=== PATIENT | female | born 1960 | race Caucasian/White ===

== ENCOUNTER 2021-07-01 13:26 | Inpatient (IN) | payer OTHER ==
[2021-07-01] MEDS ORDERED: methylPREDNISolone SOD SUCCI 125 MG/2 ML VIAL IV STA (13:43)
[2021-07-01] MEDS ORDERED: IPRATROPIUM-ALBUTEROL 3 ML NEB INHALATION STA ×3 (13:43→16:41)
--- NOTE | 2021-07-01 13:54 | ED ---
General Adult HPI - General Chief complaint: Shortness of Breath Stated complaint: SHARONA Time Seen by Provider: 07/01/21 13:32 Source: patient, RN notes reviewed, old records reviewed Mode of arrival: EMS Limitations: physical limitation - History of Present Illness Initial comments: Patient is a 60-year-old female with past medical history remarkable for hypertension, chronic tobacco use and denies history of CHF or COPD who presents emergency Department complaining of a three-day history of worsening shortness of breath. She started noticing that today she was suddenly worse. She was vaccinated for COVID-19. Boyfriend did have a URI last week and she initially thought that is what was going on. However she quickly worsened today which is why she is brought to the emergency department for evaluation. EMS when they found her discovered that she was 80% on room air. She did improve on nonrebreather to upper 90%'s. She denies any chest pain but does endorse a nonproductive cough. Denies any worsening lower extremity swelling. Endorses exertional dyspnea. Denies orthopnea or PND. Denies any fevers, chills. Denies any abdominal pain, nausea, vomiting. She has no other acute complaints at this time. She is not on oxygen at home. Patient presents with shortness of breath. - Related Data Home Medications Medication Instructions Recorded Confirmed Atorvastatin [Lipitor] 40 mg PO HS 07/01/21 07/01/21 Lisinopril-Hctz 20-12.5 mg 1 tab PO DAILY 07/01/21 07/01/21 [Zestoretic 20-12.5] Metoprolol Tartrate [Lopressor] 100 mg PO BID 07/01/21 07/01/21 amLODIPine [Norvasc] 10 mg PO DAILY 07/01/21 07/01/21 Allergies Allergy/AdvReac Type Severity Reaction Status Date / Time erythromycin base Allergy Unknown Verified 07/01/21 15:00 Review of Systems ROS Statement: Those systems with pertinent positive or pertinent negative responses have been documented in the HPI. Review of Systems: CONST: Denies fever EYES: Denies blurry vision ENT: Denies nasal congestion C/V: Denies Chest pain RESP: Endorses shortness of breath. GI: Denies abdominal pain : Denies dysuria SKIN: Denies rash. MSK: Denies joint pain. NEURO: Denies headache ROS Other: All systems not noted in ROS Statement are negative. Past Medical History Past Medical History: Hyperlipidemia, Hypertension History of Any Multi-Drug Resistant Organisms: None Reported Past Surgical History: Adenoidectomy, Tonsillectomy Past Psychological History: No Psychological Hx Reported Smoking Status: Current every day smoker Past Alcohol Use History: Occasional Past Drug Use History: None Reported General Exam - General Exam Comments Initial Comments: General: Appears in respiratory distress. She is tachypeic. There are mild subcostal retractions. HEAD: Normal with no signs of head trauma. EYES: PERRLA, EOMI, conjunctiva normal, no discharge. ENT: Hearing grossly intact, normal oropharynx. RESPIRATORY: Patient has bilateral rales and wheezes. She does have decent air movement bilaterally. Patient is saturating well on nonrebreather at this time, but will be transitioned to BiPAP. C/V: Regular rate and rhythm. S1 and S2 auscultated. Peripheral pulses are 2+ intact throughout. Patient does have mild pitting edema in the bilateral lower extremities, approximately 1-2+ into the calfs. ABD: Abd is soft, nontender, nondistended EXT: Normal range of motion, no obvious deformity SKIN: No rashes or lesions observed on exposed skin. NEURO: Alert and oriented 4. No focal deficits. Limitations: physical limitation Course Vital Signs 07/01/21 07/01/21 07/01/21 13:29 13:35 15:39 Temperature 97.3 F L Pulse Rate 77 60 Respiratory 32 H 38 H Rate Blood Pressure 195/106 O2 Sat by Pulse 99 Oximetry 07/01/21 07/01/21 07/01/21 15:52 17:30 18:36 Temperature Pulse Rate 68 68 72 Respiratory 18 18 Rate Blood Pressure 134/86 133/76 O2 Sat by Pulse 96 98 Oximetry 07/01/21 19:55 Temperature Pulse Rate 75 Respiratory 21 Rate Blood Pressure 144/94 O2 Sat by Pulse 96 Oximetry Medical Decision Making - Medical Decision Making Based on the patient's presentation and physical exam, I'm concerned for infectious versus cardiac versus pulmonary cause for current symptoms. Patient was vaccinated for COVID-19 that I cannot rule this out as a cause either. Therefore broad workup will be obtained. Patient will be started on BiPAP. Due to her wheezing and chronic tobacco use, we will administer IV Solu-Medrol, b reathing treatments, and IV magnesium. Chest x-ray and EKG will be obtained. Patient was in agreement with this plan. Patient does seem improved now that she has oxygen therapy. Initial EKG had a good amount of baseline artifact of both repeat an initial EKG showed no signs of acute ischemia that was obvious. Chest x-ray shows no acute cardio pulmonary process. Initially, there was a delay in obtaining laboratory studies from the lab. Multiple phone calls were made to the lab. They did c all back with the initial CMP and stated that they do not believe it is accurate and requested repeat. I did send repeat BMP and CBC. Everything did return at once following this repeat. They're remarkable for a leukocytosis of 12.8. Patient is acutely hyponatremic to 104 and hypochloremic 63. Patient states she has had a history of this previously but not to this degree. She is hypokalemic at 3.2. D-dimer is within normal limits. Troponin is negative. BNP is mildly elevated to 1800. COVID-19 swab is negative. On reevaluation, patient is improved on BiPAP. She is more comfortable. I do believe that this is a mixed primarily COPD with possible heart failure exacerbation picture as the cause of her difficulty in breathing. She states her breathing is improved. She is fully alert and oriented at this time. I discussed with her the results of her labs and imaging. She requires ICU admission for her hyponatremia and will be started on 30 mL an hour of 3% hypertonic saline. She was in agreement with this plan. Potassium was replenished. Patient will be started on Lasix twice a day. Patient will also receive steroids and breathing treatments on a regular basis. I spoke with the ICU attending and electrical drafter Dr. gomes who was in agreement this plan. Also contacted the patient's admitting physician, , who accepted the patient. Patient was admitted in serious condition to the ICU. - Lab Data Result diagrams: 07/01/21 16:43 07/01/21 16:43 Lab Results 07/01/21 07/01/21 07/01/21 Range/Units 14:00 15:15 15:15 WBC 12.2 H (3.8-10.6) k/uL RBC 4.64 (3.80-5.40) m/uL Hgb 15.1 (11.4-16.0) gm/dL Hct 41.1 (34.0-46.0) % MCV 88.8 (80.0-100.0) fL MCH 32.7 (25.0-35.0) pg MCHC 36.8 (31.0-37.0) g/dL RDW 12.0 (11.5-15.5) % Plt Count 345 (150-450) k/uL MPV 8.0 Neutrophils % 90 % Lymphocytes % 4 % Monocytes % 5 % Eosinophils % 0 % Basophils % 0 % Neutrophils # 11.0 H (1.3-7.7) k/uL Lymphocytes # 0.5 L (1.0-4.8) k/uL Monocytes # 0.6 (0-1.0) k/uL Eosinophils # 0.0 (0-0.7) k/uL Basophils # 0.0 (0-0.2) k/uL Manual Slide Review Performed RBC Morphology Normal Hyperchromasia Marked PT 10.1 (9.0-12.0) sec INR 0.9 (<1.2) APTT 29.4 (22.0-30.0) sec D-Dimer 0.55 (<0.60) mg/L FEU Sodium (137-145) mmol/L Potassium (3.5-5.1) mmol/L Chloride (98-107) mmol/L Carbon Dioxide (22-30) mmol/L Anion Gap mmol/L BUN (7-17) mg/dL Creatinine (0.52-1.04) mg/dL Est GFR (CKD-EPI)AfAm (>60 ml/min/1.73 sqM) Est GFR (CKD-EPI)NonAf (>60 ml/min/1.73 sqM) Glucose (74-99) mg/dL Plasma Lactic Acid Julien (0.7-2.0) mmol/L Calcium (8.4-10.2) mg/dL Magnesium (1.6-2.3) mg/dL Total Bilirubin (0.2-1.3) mg/dL AST (14-36) U/L ALT (4-34) U/L Alkaline Phosphatase (38-126) U/L Troponin I (0.000-0.034) ng/mL NT-Pro-B Natriuret Pep pg/mL Total Protein (6.3-8.2) g/dL Albumin (3.5-5.0) g/dL Coronavirus (PCR) Not Detected (Not Detectd) 07/01/21 07/01/21 07/01/21 Range/Units 15:15 15:15 15:15 WBC (3.8-10.6) k/uL RBC (3.80-5.40) m/uL Hgb (11.4-16.0) gm/dL Hct (34.0-46.0) % MCV (80.0-100.0) fL MCH (25.0-35.0) pg MCHC (31.0-37.0) g/dL RDW (11.5-15.5) % Plt Count (150-450) k/uL MPV Neutrophils % % Lymphocytes % % Monocytes % % Eosinophils % % Basophils % % Neutrophils # (1.3-7.7) k/uL Lymphocytes # (1.0-4.8) k/uL Monocytes # (0-1.0) k/uL Eosinophils # (0-0.7) k/uL Basophils # (0-0.2) k/uL Manual Slide Review RBC Morphology Hyperchromasia PT (9.0-12.0) sec INR (<1.2) APTT (22.0-30.0) sec D-Dimer (<0.60) mg/L FEU Sodium 103 L* (137-145) mmol/L Potassium 3.3 L (3.5-5.1) mmol/L Chloride 61 L* (98-107) mmol/L Carbon Dioxide 28 (22-30) mmol/L Anion Gap 14 mmol/L BUN 11 (7-17) mg/dL Creatinine 0.28 L (0.52-1.04) mg/dL Est GFR (CKD-EPI)AfAm >90 (>60 ml/min/1.73 sqM) Est GFR (CKD-EPI)NonAf >90 (>60 ml/min/1.73 sqM) Glucose 171 H (74-99) mg/dL Plasma Lactic Acid Julien 0.8 (0.7-2.0) mmol/L Calcium 9.3 (8.4-10.2) mg/dL Magnesium 3.5 H (1.6-2.3) mg/dL Total Bilirubin 0.8 (0.2-1.3) mg/dL AST 59 H (14-36) U/L ALT 40 H (4-34) U/L Alkaline Phosphatase 103 (38-126) U/L Troponin I <0.012 (0.000-0.034) ng/mL NT-Pro-B Natriuret Pep pg/mL Total Protein 8.2 (6.3-8.2) g/dL Albumin 4.8 (3.5-5.0) g/dL Coronavirus (PCR) (Not Detectd) 07/01/21 07/01/21 07/01/21 Range/Units 15:15 16:43 16:43 WBC 12.8 H (3.8-10.6) k/uL RBC 4.56 (3.80-5.40) m/uL Hgb 14.7 (11.4-16.0) gm/dL Hct 40.1 (34.0-46.0) % MCV 87.9 (80.0-100.0) fL MCH 32.3 (25.0-35.0) pg MCHC 36.7 (31.0-37.0) g/dL RDW 12.0 (11.5-15.5) % Plt Count 342 (150-450) k/uL MPV 7.5 Neutrophils % 91 % Lymphocytes % 5 % Monocytes % 4 % Eosinophils % 0 % Basophils % 0 % Neutrophils # 11.6 H (1.3-7.7) k/uL Lymphocytes # 0.6 L (1.0-4.8) k/uL Monocytes # 0.5 (0-1.0) k/uL Eosinophils # 0.0 (0-0.7) k/uL Basophils # 0.0 (0-0.2) k/uL Manual Slide Review Performed RBC Morphology Hyperchromasia Marked PT (9.0-12.0) sec INR (<1.2) APTT (22.0-30.0) sec D-Dimer (<0.60) mg/L FEU Sodium 104 L* (137-145) mmol/L Potassium 3.2 L (3.5-5.1) mmol/L Chloride 63 L* (98-107) mmol/L Carbon Dioxide 29 (22-30) mmol/L Anion Gap 12 mmol/L BUN 12 (7-17) mg/dL Creatinine 0.36 L (0.52-1.04) mg/dL Est GFR (CKD-EPI)AfAm >90 (>60 ml/min/1.73 sqM) Est GFR (CKD-EPI)NonAf >90 (>60 ml/min/1.73 sqM) Glucose 137 H (74-99) mg/dL Plasma Lactic Acid Julien (0.7-2.0) mmol/L Calcium 9.3 (8.4-10.2) mg/dL Magnesium (1.6-2.3) mg/dL Total Bilirubin (0.2-1.3) mg/dL AST (14-36) U/L ALT (4-34) U/L Alkaline Phosphatase (38-126) U/L Troponin I (0.000-0.034) ng/mL NT-Pro-B Natriuret Pep 1890 pg/mL Total Protein (6.3-8.2) g/dL Albumin (3.5-5.0) g/dL Coronavirus (PCR) (Not Detectd) - EKG Data -: EKG Interpreted by Me EKG Comments: 12-lead Electrocardiogram Interpretation Note EKG was reviewed and interpreted by myself. 12-lead ECG performed at 1347 is interpreted by me as revealing normal sinus rhythm with a good deal of baseline artifact at a rate of 81 beats per minute. Pinson is normal. HI interval is mildly prolonged at 204 ms, QRS ration is 102 ms, QTc is 473 ms.. There were no obvious ST or T wave abnormalities to suggest myocardial ischemia or injury. R wave progression across the precordium was satisfactory. By my interpretation this EKG is non-diagnostic for acute ischemia. However, this EKG is difficult to interpret secondary to a good deal of baseline artifact. Repeat EKG will be obtained. Repeat EKG was obtained. 12-lead Electrocardiogram Interpretation Note EKG was reviewed and interpreted by myself. 12-lead ECG performed at 1558 is interpreted by me as revealing normal sinus rhythm at a rate of 68 beats per minute. Pinson is normal. HI intervals 182 ms, QRS duration is 88 ms, QTc is 497 ms.. There were no ST or T wave abnormalities to suggest myocardial ischemia or injury. R wave progression across the precordium was satisfactory. By my interpretation this EKG is non-diagnostic for acute ischemia. There is still a decent amount of baseline artifact but no signs of acute ischemia but is obvious. Critical Care Time Critical Care Time: Yes Total Critical Care Time: 30 Critical Care Time: Upon my evaluation, this patient had a high probability of imminent or life- threatening deterioration due to hypoxic respiratory failure, COPD exacerbation, hyponatremia, heart failure exacerbation, which required my direct attention, intervention, and personal management. I have personally provided 30 minutes of critical care time exclusive of time spent on separately billable procedures. Time includes review of laboratory data, radiology results, discussion with consultants, and monitoring for potential decompensation. Interventions were performed as documented in my note. Disposition Clinical Impression: Hyponatremia, COPD exacerbation, Respiratory failure with hypoxia, CHF exacerbation Disposition: ADMITTED IP TO THIS HOSP Condition: Serious
[2021-07-01] MEDS: MAGNESIUM SULFATE-D5W PMX 1 GM in DEXTROSE/WATER 1 100ML.BAG IVPB SCH ×2 (13:56→15:00)
--- NOTE | 2021-07-01 14:39 | XR ---
EXAMINATION TYPE: XR chest 1V DATE OF EXAM: 07/01/2021 COMPARISON: NONE HISTORY: Short of breath TECHNIQUE: Single view FINDINGS: There is no heart failure nor confluent pneumonic infiltrate. Costophrenic angles are clear . There are no hilar masses. IMPRESSION: No active cardiopulmonary disease.
[2021-07-01 15:50] LABS: ALT 40 U/L (4-34); AST 59 U/L (14-36); African American GFR (CKD) >90 (>60 ml/min/1.73 sqM); Albumin 4.8 g/dL (3.5-5.0); Alkaline Phosphatase 103 U/L (38-126); Anion Gap 14 mmol/L; Blood Urea Nitrogen 11 mg/dL (7-17); Calcium 9.3 mg/dL (8.4-10.2); Carbon Dioxide 28 mmol/L (22-30); Glucose 171 mg/dL (74-99); Magnesium 3.5 mg/dL (1.6-2.3); Non-African American GFR(CKD) >90 (>60 ml/min/1.73 sqM); Potassium 3.3 mmol/L (3.5-5.1); Total Bilirubin 0.8 mg/dL (0.2-1.3); Total Protein 8.2 g/dL (6.3-8.2)
[2021-07-01 16:20] LABS: Chloride 61 mmol/L (98-107); Sodium 103 mmol/L (137-145)
[2021-07-01 16:29] LABS: INR 0.9 (<1.2); Partial Thromboplastin Time 29.4 sec (22.0-30.0); Prothrombin Time 10.1 sec (9.0-12.0)
[2021-07-01 16:38] LABS: Basophils % (A) 0 %; Eosinophils % (A) 0 %; HCT 41.1 % (34.0-46.0); HGB 15.1 gm/dL (11.4-16.0); Hyperchromasia Marked; Lymphocytes # (A) 0.5 k/uL (1.0-4.8); Lymphocytes % (A) 4 %; MCH 32.7 pg (25.0-35.0); MCHC 36.8 g/dL (31.0-37.0); MCV 88.8 fL (80.0-100.0); Monocytes # (A) 0.6 k/uL (0-1.0); Monocytes % (A) 5 %; Neutrophils % (A) 90 %; Platelet Count 345 k/uL (150-450); RBC 4.64 m/uL (3.80-5.40); WBC 12.2 k/uL (3.8-10.6)
[2021-07-01 17:10] LABS: African American GFR (CKD) >90 (>60 ml/min/1.73 sqM); Blood Urea Nitrogen 12 mg/dL (7-17); Calcium 9.3 mg/dL (8.4-10.2); Carbon Dioxide 29 mmol/L (22-30); Glucose 137 mg/dL (74-99); Non-African American GFR(CKD) >90 (>60 ml/min/1.73 sqM)
[2021-07-01 17:28] LABS: Anion Gap 12 mmol/L; Potassium 3.2 mmol/L (3.5-5.1)
[2021-07-01 17:31] LABS: Basophils % (A) 0 %; Chloride 63 mmol/L (98-107); Eosinophils % (A) 0 %; HCT 40.1 % (34.0-46.0); HGB 14.7 gm/dL (11.4-16.0); Hyperchromasia Marked; Lymphocytes # (A) 0.6 k/uL (1.0-4.8); Lymphocytes % (A) 5 %; MCH 32.3 pg (25.0-35.0); MCHC 36.7 g/dL (31.0-37.0); MCV 87.9 fL (80.0-100.0); Mean Platelet Volume 7.5; Monocytes # (A) 0.5 k/uL (0-1.0); Monocytes % (A) 4 %; Neutrophils # (A) 11.6 k/uL (1.3-7.7); Neutrophils % (A) 91 %; Platelet Count 342 k/uL (150-450); RBC 4.56 m/uL (3.80-5.40); Sodium 104 mmol/L (137-145); WBC 12.8 k/uL (3.8-10.6)
[2021-07-01] MEDS ORDERED: POTASSIUM CHLORIDE ER 20 MEQ TAB.ER PO STA (17:34)
[2021-07-01] MEDS ORDERED: FUROSEMIDE 10 MG/ML 4 ML VIAL IV STA (17:50)
[2021-07-01] MEDS ORDERED: SODIUM CHLORIDE 3%(HYPERTONIC) 500 ML IV SCH (18:00)
[2021-07-01] MEDS ORDERED: NALOXONE 0.4 MG/ML 1 ML VIAL IV PRN (18:02)
[2021-07-01] MEDS ORDERED: IPRATROPIUM-ALBUTEROL 3 ML NEB INHALATION SCH (19:00)
[2021-07-01] MEDS ORDERED: IPRATROPIUM-ALBUTEROL 3 ML NEB INHALATION PRN (19:24)
[2021-07-01] MEDS: IPRATROPIUM-ALBUTEROL 3 ML NEB INHALATION SCH (20:53)
--- NOTE | 2021-07-01 21:28 | CT ---
EXAMINATION TYPE: CT chest wo con DATE OF EXAM: 07/01/2021 COMPARISON: None HISTORY: SOB CT DLP: 472.2 mGycm Automated exposure control for dose reduction was used. Images obtained from the thoracic inlet to the diaphragm without contrast. The lungs are clear of consolidation. There is minimal interstitial density in the mid and lower lung barros. There is no pleural effusion. There is no evidence of a pulmonary mass. Heart appears border line enlarged. There is no pericardial effusion. There is no mediastinal adenopathy. There are no hil ar masses. There is some mild coronary artery calcification. The thoracic spine is intact. There is no compression fracture. Sternum is intact. IMPRESSION: No pulmonary consolidation. No suspicious pulmonary mass. Slight increased pulmonary interstitial den sity.
[2021-07-01 21:47] LABS: Glucose,Whole Blood 150 mg/dL (75-99)
[2021-07-01 22:56] LABS: African American GFR (CKD) >90 (>60 ml/min/1.73 sqM); Anion Gap 14 mmol/L; Blood Urea Nitrogen 16 mg/dL (7-17); Calcium 9.6 mg/dL (8.4-10.2); Carbon Dioxide 26 mmol/L (22-30); Glucose 127 mg/dL (74-99); Non-African American GFR(CKD) >90 (>60 ml/min/1.73 sqM); Uric Acid 2.6 mg/dL (3.7-7.4)
[2021-07-01 23:08] LABS: Sodium 107 mmol/L (137-145)
[2021-07-01 23:09] LABS: Chloride 67 mmol/L (98-107); Potassium 5.7 mmol/L (3.5-5.1)
[2021-07-02] MEDS: methylPREDNISolone SOD SUCCI 40 MG/ML 1 ML VIAL IV SCH ×5 (00:18→23:08)
[2021-07-02] MEDS: METOPROLOL TARTRATE 50 MG TAB PO SCH ×3 (00:18→20:00)
[2021-07-02] MEDS: ATORVASTATIN 40 MG TAB PO SCH ×2 (00:18→20:00)
[2021-07-02 04:02] LABS: Amorphous Sediment,Urine Occasional /hpf; Appearance,Urine Clear (Clear); Bilirubin,Urine Negative (Negative); Blood,Urine Trace (Negative); Color,Urine Yellow; Glucose,Urine (UA) 1+ (Negative); Ketones,Urine Negative (Negative); Leukocyte Esterase,Urine Negative (Negative); Mucus,Urine Rare /hpf; Nitrite,Urine Negative (Negative); Protein,Urine 2+ (Negative); RBC,Urine 1 /hpf (0-5); Specific Gravity,Urine 1.017 (1.001-1.035); Squamous Epithelial Cell,Urine 1 /hpf (0-4); Urobilinogen,Urine <2.0 mg/dL (<2.0); WBC,Urine 4 /hpf (0-5)
[2021-07-02 04:05] LABS: ALT 38 U/L (4-34); AST 51 U/L (14-36); African American GFR (CKD) >90 (>60 ml/min/1.73 sqM); Albumin 4.4 g/dL (3.5-5.0); Alkaline Phosphatase 80 U/L (38-126); Anion Gap 15 mmol/L; Blood Urea Nitrogen 16 mg/dL (7-17); Calcium 8.6 mg/dL (8.4-10.2); Carbon Dioxide 24 mmol/L (22-30); Glucose 111 mg/dL (74-99); Non-African American GFR(CKD) >90 (>60 ml/min/1.73 sqM); Total Bilirubin 0.8 mg/dL (0.2-1.3); Total Protein 7.5 g/dL (6.3-8.2)
[2021-07-02 04:06] LABS: Basophils % (A) 0 %; Eosinophils % (A) 0 %; HGB 14.3 gm/dL (11.4-16.0); Lymphocytes % (A) 5 %; MCH 32.9 pg (25.0-35.0); MCHC 36.6 g/dL (31.0-37.0); Mean Platelet Volume 7.3; Monocytes # (A) 2.2 k/uL (0-1.0); Monocytes % (A) 12 %; Neutrophils # (A) 14.7 k/uL (1.3-7.7); Neutrophils % (A) 81 %; Platelet Count 333 k/uL (150-450); RBC 4.33 m/uL (3.80-5.40); RDW 11.3 % (11.5-15.5); WBC 18.1 k/uL (3.8-10.6)
[2021-07-02 04:21] LABS: Chloride 67 mmol/L (98-107); Potassium 3.4 mmol/L (3.5-5.1); Sodium 106 mmol/L (137-145)
[2021-07-02 04:22] LABS: Creatinine,Urine Random 81.8 mg/dL
[2021-07-02] MEDS ORDERED: POTASSIUM CHLORIDE ER 20 MEQ TAB.ER PO STA (04:24)
[2021-07-02 04:52] LABS: Glucose,Whole Blood 130 mg/dL (75-99)
[2021-07-02] MEDS: INSULIN ASPART (NovoLOG) 100 UNIT/ML VIAL SQ SCH ×4 (05:04→23:08)
[2021-07-02 07:38] LABS: Potassium 3.6 mmol/L (3.5-5.1)
[2021-07-02] MEDS: IPRATROPIUM-ALBUTEROL 3 ML NEB INHALATION SCH ×4 (07:38→20:19)
[2021-07-02 07:53] LABS: Sodium 110 mmol/L (137-145)
[2021-07-02] MEDS ORDERED: Potassium Replacement Protocol 1 EACH MISC MISCELLANE PRN (08:16)
[2021-07-02] MEDS: PANTOPRAZOLE 40 MG/10 ML VIAL IV SCH (08:25)
--- NOTE | 2021-07-02 08:52 | P.NPCON ---
History of Present Illness - Reason for Consult hyponatremia - History of Present Illness Reason for consultation: Hyponatremia History of present illness: Patient is a 60-year-old female seen in renal consultation for hyponatremia. Sodium level on admission on July 01 at 3:15 PM was 103. Patient is currently receiving 3% saline and sodium level from this morning is up to 110. She was initially on BiPAP and is currently on 3 L nasal cannula. She's currently not responding to verbal commands. She is sleeping. Patient was taking hydrochlorothiazide as an outpatient. Urine osmolality 471. From the records it appears that she had an upper respiratory infection last week but the symptoms worsen and she came to the hospital. When she was found by the EMS her oxygen saturation was 80%. Currently on 3 L is a cannula her oxygen saturation is 96-99%. Chest CT revealed no pulmonary consolidation. No evidence of fluid overload. Hemodynamically stable. No fever. Vital signs are stable. General: Sleeping. On nasal cannula. HEENT: Head exam is unremarkable. LUNGS: Breath sounds decreased. HEART: Rate and Rhythm are regular. ABDOMEN: Soft, obese. EXTREMITITES: No edema. Past Medical History Past Medical History: Hyperlipidemia, Hypertension History of Any Multi-Drug Resistant Organisms: None Reported Past Surgical History: Adenoidectomy, Tonsillectomy Past Anesthesia/Blood Transfusion Reactions: No Reported Reaction Past Psychological History: No Psychological Hx Reported Smoking Status: Current every day smoker Past Alcohol Use History: Occasional Past Drug Use History: None Reported - Past Family History Father History Unknown: Yes Mother History Unknown: Yes Medications and Allergies Home Medications Medication Instructions Recorded Confirmed Type Atorvastatin [Lipitor] 40 mg PO HS 07/01/21 07/01/21 History Lisinopril-Hctz 20-12.5 mg 1 tab PO DAILY 07/01/21 07/01/21 History [Zestoretic 20-12.5] Metoprolol Tartrate [Lopressor] 100 mg PO BID 07/01/21 07/01/21 History amLODIPine [Norvasc] 10 mg PO DAILY 07/01/21 07/01/21 History Allergies Allergy/AdvReac Type Severity Reaction Status Date / Time erythromycin base Allergy Unknown Verified 07/01/21 15:00 Physical Exam Vitals: Vital Signs Temp Pulse Pulse Resp BP BP Pulse Ox 07/02/21 07:48 82 22 07/02/21 07:38 82 22 96 07/02/21 07:00 70 20 146/87 99 07/02/21 06:00 64 20 165/86 97 07/02/21 05:00 65 22 153/95 96 07/02/21 04:03 94 L 07/02/21 04:00 98.3 F 66 25 H 142/79 92 L 07/02/21 03:00 64 16 94 L 07/02/21 02:00 62 16 150/79 96 07/02/21 01:00 62 14 148/80 98 07/02/21 00:12 96 07/02/21 00:00 98.6 F 65 22 133/99 98 07/01/21 23:30 76 20 107/93 93 L 07/01/21 23:00 80 16 167/95 90 L 07/01/21 22:30 71 15 153/102 98 07/01/21 22:09 97 07/01/21 22:00 97.3 F L 68 16 162/97 99 07/01/21 21:02 98 F 71 20 125/75 07/01/21 20:49 71 20 95 07/01/21 19:55 75 21 144/94 96 07/01/21 19:22 162/97 97 07/01/21 18:36 72 18 133/76 98 07/01/21 17:30 68 18 134/86 96 07/01/21 15:52 68 07/01/21 15:39 60 07/01/21 13:35 38 H 07/01/21 13:29 97.3 F L 77 32 H 195/106 99 Intake and Output 07/01/21 07/02/21 07/02/21 22:59 06:59 14:59 Intake Total 30 260 40 Output Total 0 250 0 Balance 30 10 40 Intake: IV 30 260 40 3% 30 260 40 Output: Urine 0 250 0 Other: Voiding Method Bedpan Weight 117.934 kg 114.1 kg Results - Lab Results Most recent lab results Calcium 8.6 mg/dL (8.4-10.2) 07/02/21 02:57 Magnesium 2.0 mg/dL (1.6-2.3) 07/02/21 02:57 07/02/21 02:57 07/02/21 07:20 Assessment and Plan Plan: Assessment: 1. Hyponatremia. Appears euvolemic. Component of poor intake and use of thiazide diuretic. Also concern for SIADH. Urine osmolality 471. TSH normal. Sodium level was 103 on admission and is up to 110 this morning. 2. COPD exacerbation. 3. Benign hypertension. 4. Hypokalemia from poor intake and diuretics. Being replaced. Plan: Stop 3%. Stop all diuretics. Recheck sodium level at 10:30 AM. Goal rate of sodium correction 6-8 mEq per 24 hours. Avoid thiazide diuretics in the future. Thank you for the consultation. I will continue to follow the patient with you during her hospital stay.
[2021-07-02] MEDS ORDERED: FUROSEMIDE 10 MG/ML 4 ML VIAL IV SCH (09:00)
[2021-07-02] MEDS ORDERED: POTASSIUM CHLORIDE ER 20 MEQ TAB.ER PO SCH (09:00)
[2021-07-02] MEDS ORDERED: amLODIPine 10 MG TAB PO SCH (09:00)
[2021-07-02] MEDS ORDERED: LISINOPRIL-HCTZ 20-12.5 MG 1 EACH TAB PO SCH (09:00)
--- NOTE | 2021-07-02 09:19 | XR ---
EXAMINATION TYPE: XR chest 1V DATE OF EXAM: 07/02/2021 COMPARISON: Chest x-ray 07/01/2021 HISTORY: COPD, congestive heart failure TECHNIQUE: Single frontal view of the chest is obtained. FINDINGS: Patient is rotated, there are overlying leads, exam is expiratory. There is no focal air sp nikhil opacity, pleural effusion, or pneumothorax seen. The cardiac silhouette size is prominent althou gh this may be due to technique. The osseous structures are intact. IMPRESSION: Expiratory rotated exam. Cardiomegaly.
--- NOTE | 2021-07-02 10:44 | P.CNPUL ---
History of Present Illness Consult date: 07/02/21 Requesting physician: Hayden Gutierrez Reason for consult: dyspnea Chief complaint: Shortness of breath History of present illness: 60-year-old white female patient with past medical history of hypertension, nicotine dependence, hyperlipidemia, morbid obesity who presented to the emergency department on 07/01/2021 complaining of a 3 day history of worsening shortness of breath. Patient noticed that shortness of breath became suddenly worse, she was not vaccinated for COVID-19, and her boyfriend had a upper respiratory infection last week. The EMS found her pulse ox to be around 80% on room air, she was placed on nonrebreather mask and her pulse ox improved up to 90%. She denied any chest pain, her cough is nonproductive, no fever, no chills, no nausea vomiting or diarrhea, she is usually not oxygen dependent at baseline. Her chest x-ray shows no active cardiopulmonary disease, EKG showed sinus rhythm. Her labs revealed a sodium of 103, potassium of 3.3, chloride was 61, white count was 12.2, hemoglobin is 15.1, lactic acid was 0.8, proBNP was 1890, troponin was less than 0.012, COVID-19 PCR was negative. D-dimer was negative at 0.55, and INR was 0.9. CT chest without contrast showed no pulmonary consolidation, no suspicious pulmonary mass, and slight increased pulmonary interstitial density. She was given a dose of Lasix in the emergency department. She was started on nebulized treatments and IV steroids, acute exacerbation of COPD, and nephrology consultation was requested. Review of Systems All systems: negative Constitutional: Denies chills, Denies fever Eyes: denies blurred vision, denies pain Ears, nose, mouth and throat: Denies headache, Denies sore throat Cardiovascular: Denies chest pain, Denies shortness of breath Respiratory: Reports dyspnea, Denies cough Gastrointestinal: Denies abdominal pain, Denies diarrhea, Denies nausea, Denies vomiting Genitourinary: Denies dysuria, Denies hematuria Musculoskeletal: Denies myalgias Integumentary: Denies pruritus, Denies rash Neurological: Denies numbness, Denies weakness Psychiatric: Denies anxiety, Denies depression Endocrine: Denies fatigue, Denies weight change Past Medical History Past Medical History: Hyperlipidemia, Hypertension History of Any Multi-Drug Resistant Organisms: None Reported Past Surgical History: Adenoidectomy, Tonsillectomy Past Anesthesia/Blood Transfusion Reactions: No Reported Reaction Past Psychological History: No Psychological Hx Reported Smoking Status: Current every day smoker Past Alcohol Use History: Occasional Past Drug Use History: None Reported - Past Family History Father History Unknown: Yes Mother History Unknown: Yes Medications and Allergies Home Medications Medication Instructions Recorded Confirmed Type Atorvastatin [Lipitor] 40 mg PO HS 07/01/21 07/01/21 History Lisinopril-Hctz 20-12.5 mg 1 tab PO DAILY 07/01/21 07/01/21 History [Zestoretic 20-12.5] Metoprolol Tartrate [Lopressor] 100 mg PO BID 07/01/21 07/01/21 History amLODIPine [Norvasc] 10 mg PO DAILY 07/01/21 07/01/21 History Allergies Allergy/AdvReac Type Severity Reaction Status Date / Time erythromycin base Allergy Unknown Verified 07/01/21 15:00 Physical Exam Vitals: Vital Signs Temp Pulse Pulse Resp BP BP Pulse Ox 07/02/21 09:00 67 16 159/107 96 07/02/21 08:00 98.6 F 66 13 156/105 93 L 07/02/21 07:48 82 22 07/02/21 07:38 82 22 96 07/02/21 07:00 70 20 146/87 99 07/02/21 06:00 64 20 165/86 97 07/02/21 05:00 65 22 153/95 96 07/02/21 04:03 94 L 07/02/21 04:00 98.3 F 66 25 H 142/79 92 L 07/02/21 03:00 64 16 94 L 07/02/21 02:00 62 16 150/79 96 07/02/21 01:00 62 14 148/80 98 07/02/21 00:12 96 07/02/21 00:00 98.6 F 65 22 133/99 98 07/01/21 23:30 76 20 107/93 93 L 07/01/21 23:00 80 16 167/95 90 L 07/01/21 22:30 71 15 153/102 98 07/01/21 22:09 97 07/01/21 22:00 97.3 F L 68 16 162/97 99 07/01/21 21:02 98 F 71 20 125/75 07/01/21 20:49 71 20 95 07/01/21 19:55 75 21 144/94 96 07/01/21 19:22 162/97 97 07/01/21 18:36 72 18 133/76 98 07/01/21 17:30 68 18 134/86 96 07/01/21 15:52 68 07/01/21 15:39 60 07/01/21 13:35 38 H 07/01/21 13:29 97.3 F L 77 32 H 195/106 99 Intake and Output 07/01/21 07/02/21 07/02/21 22:59 06:59 14:59 Intake Total 30 260 175 Output Total 0 250 0 Balance 30 10 175 Intake: IV 30 260 175 3% 30 260 175 Output: Urine 0 250 0 Other: Voiding Method Bedpan Bedpan # Voids 0 Weight 117.934 kg 114.1 kg 114.1 kg GENERAL EXAM: Alert, pleasant, 60-year-old white female, 3 L of oxygen a pulse ox of 93-96% comfortable in no apparent distress. HEAD: Normocephalic/atraumatic. EYES: Normal reaction of pupils, equal size. Conjunctiva pink, sclera white. NOSE: Clear with pink turbinates. THROAT: No erythema or exudates. NECK: No masses, no JVD, no thyroid enlargement, no adenopathy. CHEST: No chest wall deformity. Symmetrical expansion. LUNGS: Equal air entry with diminished breath sounds, mild wheezing CVS: Regular rate and rhythm, normal S1 and S2, no gallops, no murmurs, no rubs ABDOMEN: Soft, nontender. No hepatosplenomegaly, normal bowel sounds, no guarding or rigidity. EXTREMITIES: No clubbing, no edema, no cyanosis, 2+ pulses and upper and lower extremities. MUSCULOSKELETAL: Muscle strength and tone normal. SPINE: No scoliosis or deformity SKIN: No rashes CENTRAL NERVOUS SYSTEM: Alert and oriented -3. No focal deficits, tone is normal in all 4 extremities. PSYCHIATRIC: Alert and oriented -3. Appropriate affect. Intact judgment and insight. Results - Laboratory Findings CBC and BMP: 07/02/21 02:57 07/02/21 07:20 PT/INR, D-dimer PT 10.1 sec (9.0-12.0) 07/01/21 15:15 INR 0.9 (<1.2) 07/01/21 15:15 D-Dimer 0.55 mg/L FEU (<0.60) 07/01/21 15:15 Abnormal lab findings: Abnormal Labs 07/01/21 07/01/21 07/01/21 01:35 15:15 15:15 WBC 12.2 H RDW Neutrophils # 11.0 H Lymphocytes # 0.5 L Monocytes # Sodium 103 L* Potassium 3.3 L Chloride 61 L* Creatinine 0.28 L Glucose 171 H POC Glucose (mg/dL) Uric Acid Magnesium 3.5 H AST 59 H ALT 40 H Urine Protein 2+ H Urine Glucose (UA) 1+ H Urine Blood Trace H Amorphous Sediment Occasional H Hyaline Casts 69 H Urine Mucus Rare H 07/01/21 07/01/21 07/01/21 16:43 16:43 21:46 WBC 12.8 H RDW Neutrophils # 11.6 H Lymphocytes # 0.6 L Monocytes # Sodium 104 L* Potassium 3.2 L Chloride 63 L* Creatinine 0.36 L Glucose 137 H POC Glucose (mg/dL) 150 H Uric Acid Magnesium AST ALT Urine Protein Urine Glucose (UA) Urine Blood Amorphous Sediment Hyaline Casts Urine Mucus 07/01/21 07/02/21 07/02/21 22:25 02:57 02:57 WBC 18.1 H RDW 11.3 L Neutrophils # 14.7 H Lymphocytes # Monocytes # 2.2 H Sodium 107 L* 106 L* Potassium 5.7 H 3.4 L Chloride 67 L* 67 L* Creatinine 0.41 L 0.28 L Glucose 127 H 111 H POC Glucose (mg/dL) Uric Acid 2.6 L Magnesium AST 51 H ALT 38 H Urine Protein Urine Glucose (UA) Urine Blood Amorphous Sediment Hyaline Casts Urine Mucus 07/02/21 07/02/21 04:49 07:20 WBC RDW Neutrophils # Lymphocytes # Monocytes # Sodium 110 L* Potassium Chloride Creatinine Glucose POC Glucose (mg/dL) 130 H Uric Acid Magnesium AST ALT Urine Protein Urine Glucose (UA) Urine Blood Amorphous Sediment Hyaline Casts Urine Mucus - Diagnostic Findings Chest x-ray: report reviewed, image reviewed CT scan - chest: report reviewed, image reviewed Additional studies: EKG reviewed Assessment and Plan Plan: Assessment: #1. Acute hypoxic respiratory failure related to acute exacerbation of COPD. COVID-19 PCR was negative, chest x-ray showed no acute pulmonary process #2. Severe hyponatremia, likely hypovolemic related to poor intake and thiazide diuretic therapy, possible SIADH. Nephrology is following. Patient was on 3% hypertonic saline, today sodium is 110 #3. Hypertension #4. Current and ongoing history of smoking #5. Suspect underlying COPD, severity of which is not known #6. Hypokalemia, related to dehydration and diuretic therapy, being replaced per protocol #7. Hypertension #8. Morbid obesity with BMI of 46 kg/m Plan: Continue IV steroids and bronchodilators Patient off BiPAP support, she is tolerating nasal cannula, an easier Afebrile, COVID-19 PCR was negative, chest x-ray showed no acute process Nephrology is following and managing the serum sodium GI and DVT prophylaxis Follow-up labs and electrolytes per nephrology recommendations We'll continue to closely follow I performed a history & physical examination of the patient and discussed their management with my nurse practitioner, Monique Stewart. I reviewed the nurse practitioner's note and agree with the documented findings and plan of care. Lung sounds are positive for diffuse wheezes throughout the lung barros. The findings and the impression was discussed with the patient. I attest to the documentation by the nurse practitioner. Time with Patient: Greater than 30
[2021-07-02 11:19] LABS: Hyaline Casts,Urine 37 /lpf (0-2)
[2021-07-02 11:45] LABS: Potassium 3.8 mmol/L (3.5-5.1)
[2021-07-02 11:55] LABS: Glucose,Whole Blood 117 mg/dL (75-99)
[2021-07-02] MEDS ORDERED: HALOPERIDOL LACTATE 5 MG/ML 1 ML VIAL ONE (12:30)
[2021-07-02] MEDS: HALOPERIDOL LACTATE 5 MG/ML 1 ML VIAL IVP PRN ×2 (12:33→12:54)
--- NOTE | 2021-07-02 17:13 | P.CRDCN ---
History of Present Illness History of present illness: This is Dr. Campbell dictating a consult on this patient The patient was interviewed and examined IMPRESSION / ASSESSMENT: Shortness of breath and mental status changes Reason viral infection Severe hyponatremia PLAN: 2-D echo and Doppler study to assess cardiac function Continue metoprolol twice daily Amlodipine 10 mg at noontime Monitor blood pressure HPI patient presented to the hospital after she became increasingly short of breath and lethargic Last fecal had an upper respiratory infection and then subsequently she got an upper respiratory infection then became more short of breath and progressively lethargic She was found to have a very low sodium and is being treated for severe hyponatremia this time and nephrology is on consultation Past medical history of hypertension and tobacco use and increased BMI She has been vaccinated against: ROS: No fever chills or rigors, no cough, phlegm or expectoration, no nausea, vomiting or diarrhea, no hematuria, dysuria, no musculoskeletal complaints, no strokes or seizures, no skin lesions. EXAMINATION: Blood pressure 127/66. Millimeters of mercury pulse rate in the 60s Reduced breath sounds bilaterally Heart sounds are normal REVIEW OF LABS, ECG & MEDICAL DATA chest x-ray does not show any pulmonary infiltrate Baseline artifact and twelve-lead EKG sinus rhythm normal LA narrow QRS normal ST segments CT of the chest no bony consolidation increased pulmonary interstitial density Severe hyponatremia noted, 107 110 Normal troponin Elevated white count 12.8 thousand D-dimer 0.55 NT proBNP 1890 Home medications include amlodipine, metoprolol, lisinopril hydrochlorothiazide and atorvastatin Past Medical History Past Medical History: Hyperlipidemia, Hypertension History of Any Multi-Drug Resistant Organisms: None Reported Past Surgical History: Adenoidectomy, Tonsillectomy Past Anesthesia/Blood Transfusion Reactions: No Reported Reaction Past Psychological History: No Psychological Hx Reported Smoking Status: Current every day smoker Past Alcohol Use History: Occasional Past Drug Use History: None Reported - Past Family History Father History Unknown: Yes Mother History Unknown: Yes Medications and Allergies Home Medications Medication Instructions Recorded Confirmed Type Atorvastatin [Lipitor] 40 mg PO HS 07/01/21 07/01/21 History Lisinopril-Hctz 20-12.5 mg 1 tab PO DAILY 07/01/21 07/01/21 History [Zestoretic 20-12.5] Metoprolol Tartrate [Lopressor] 100 mg PO BID 07/01/21 07/01/21 History amLODIPine [Norvasc] 10 mg PO DAILY 07/01/21 07/01/21 History Allergies Allergy/AdvReac Type Severity Reaction Status Date / Time erythromycin base Allergy Unknown Verified 07/01/21 15:00 Physical Exam Vitals: Vital Signs Temp Pulse Pulse Resp BP BP Pulse Ox 07/02/21 16:00 97.9 F 64 16 116/50 92 L 07/02/21 15:53 84 07/02/21 15:40 78 07/02/21 15:00 62 15 127/66 98 07/02/21 14:00 71 21 116/61 98 07/02/21 13:00 67 13 123/61 95 07/02/21 12:00 65 18 87/62 97 07/02/21 11:45 62 18 07/02/21 11:36 60 20 07/02/21 11:00 55 L 12 91/65 91 L 07/02/21 10:00 55 L 13 136/80 95 07/02/21 09:00 67 16 159/107 96 07/02/21 08:00 98.6 F 66 13 156/105 93 L 07/02/21 07:48 82 22 07/02/21 07:38 82 22 96 07/02/21 07:00 70 20 146/87 99 07/02/21 06:00 64 20 165/86 97 07/02/21 05:00 65 22 153/95 96 07/02/21 04:03 94 L 07/02/21 04:00 98.3 F 66 25 H 142/79 92 L 07/02/21 03:00 64 16 94 L 07/02/21 02:00 62 16 150/79 96 07/02/21 01:00 62 14 148/80 98 07/02/21 00:12 96 07/02/21 00:00 98.6 F 65 22 133/99 98 07/01/21 23:30 76 20 107/93 93 L 07/01/21 23:00 80 16 167/95 90 L 07/01/21 22:30 71 15 153/102 98 07/01/21 22:09 97 07/01/21 22:00 97.3 F L 68 16 162/97 99 07/01/21 21:02 98 F 71 20 125/75 07/01/21 20:49 71 20 95 11/21/21 19:55 75 21 144/94 96 07/01/21 19:22 162/97 97 07/01/21 18:36 72 18 133/76 98 07/01/21 17:30 68 18 134/86 96 Intake and Output 07/02/21 07/02/21 07/02/21 06:59 14:59 22:59 Intake Total 260 175 Output Total 250 0 Balance 10 175 Intake: IV 260 175 3% 260 175 Output: Urine 250 0 Other: Voiding Method Bedpan Bedpan # Voids 1 1 Weight 114.1 kg 114.1 kg Results 07/02/21 02:57 07/02/21 14:48 Cardiac Enzymes 07/02/21 Range/Units 02:57 AST 51 H (14-36) U/L CBC 07/01/21 07/02/21 Range/Units 16:43 02:57 WBC 12.8 H 18.1 H (3.8-10.6) k/uL RBC 4.56 4.33 (3.80-5.40) m/uL Hgb 14.7 14.3 (11.4-16.0) gm/dL Hct 40.1 39.0 (34.0-46.0) % Plt Count 342 333 (150-450) k/uL Comprehensive Metabolic Panel 07/01/21 07/01/21 07/02/21 Range/Units 16:43 22:25 02:57 Sodium 104 L* 107 L* 106 L* (137-145) mmol/L Potassium 3.2 L 5.7 H 3.4 L (3.5-5.1) mmol/L Chloride 63 L* 67 L* 67 L* (98-107) mmol/L Carbon Dioxide 29 26 24 (22-30) mmol/L BUN 12 16 16 (7-17) mg/dL Creatinine 0.36 L 0.41 L 0.28 L (0.52-1.04) mg/dL Glucose 137 H 127 H 111 H (74-99) mg/dL Calcium 9.3 9.6 8.6 (8.4-10.2) mg/dL AST 51 H (14-36) U/L ALT 38 H (4-34) U/L Alkaline Phosphatase 80 (38-126) U/L Total Protein 7.5 (6.3-8.2) g/dL Albumin 4.4 (3.5-5.0) g/dL 07/02/21 07/02/21 07/02/21 Range/Units 07:20 10:39 14:48 Sodium 110 L* 110 L* 110 L* (137-145) mmol/L Potassium 3.6 3.8 (3.5-5.1) mmol/L Chloride (98-107) mmol/L Carbon Dioxide (22-30) mmol/L BUN (7-17) mg/dL Creatinine (0.52-1.04) mg/dL Glucose (74-99) mg/dL Calcium (8.4-10.2) mg/dL AST (14-36) U/L ALT (4-34) U/L Alkaline Phosphatase (38-126) U/L Total Protein (6.3-8.2) g/dL Albumin (3.5-5.0) g/dL Current Medications Generic Name Dose Route Start Last Admin Trade Name Freq PRN Reason Stop Dose Admin Albuterol/Ipratropium 3 ml 07/01/21 20:00 07/02/21 15:39 Ipratropium-Albuterol 3 Ml Neb INHALATION 3 ml RT-QID ALLAN Administration Albuterol/Ipratropium 3 ml 07/01/21 19:24 Ipratropium-Albuterol 3 Ml Neb INHALATION RT-Q2H PRN Shortness Of Breath Or Wheezing Amlodipine Besylate 10 mg 07/03/21 12:00 Amlodipine 10 Mg Tab PO DAILY@1200 [facility] Atorvastatin Calcium 40 mg 07/01/21 21:00 07/02/21 00:18 Atorvastatin 40 Mg Tab PO 40 mg HS ALLAN Administration Haloperidol Lactate 2 mg 07/02/21 12:28 07/02/21 12:54 Haloperidol Lactate 5 Mg/Ml 1 Ml Vial IVP 2 mg Q2H PRN Administration Agitation or Acute Psychosis Insulin Aspart 0 unit 07/02/21 06:00 07/02/21 11:57 Insulin Aspart (Novolog) 100 Unit/Ml Vial SQ Not Given Q6H [facility] Protocol Methylprednisolone Sodium Succinate 40 mg 07/02/21 00:00 07/02/21 13:52 Methylprednisolone Sod Succi 40 Mg/Ml 1 Ml Vial IV 40 mg Q6HR ALLAN Administration Metoprolol Tartrate 100 mg 07/01/21 21:00 07/02/21 08:25 Metoprolol Tartrate 50 Mg Tab PO 100 mg BID ALLAN Administration Miscellaneous Information 1 each 07/02/21 08:16 Potassium Replacement Protocol 1 Each Misc MISCELLANE DAILY PRN Per Protocol Protocol Naloxone HCl 0.2 mg 07/01/21 18:02 Naloxone 0.4 Mg/Ml 1 Ml Vial IV Q2M PRN Opioid Reversal Pantoprazole Sodium 40 mg 07/02/21 09:00 07/02/21 08:25 Pantoprazole 40 Mg/10 Ml Vial IV 40 mg DAILY ALLAN Administration Intake and Output 07/02/21 07/02/21 07/02/21 06:59 14:59 22:59 Intake Total 260 175 Output Total 250 0 Balance 10 175 Intake: IV 260 175 3% 260 175 Output: Urine 250 0 Other: Voiding Method Bedpan Bedpan # Voids 1 1 Weight 114.1 kg 114.1 kg Patient Weight 07/03/21 06:59 Weight 114.1 kg 07/02/21 02:57 07/02/21 14:48
[2021-07-02 17:24] LABS: Glucose,Whole Blood 146 mg/dL (75-99)
[2021-07-02 23:03] LABS: Glucose,Whole Blood 140 mg/dL (75-99)
[2021-07-02] MEDS: SODIUM CHLORIDE 3%(HYPERTONIC) 500 ML IV SCH (23:55)
[2021-07-03 04:53] LABS: Glucose,Whole Blood 143 mg/dL (75-99)
[2021-07-03] MEDS: methylPREDNISolone SOD SUCCI 40 MG/ML 1 ML VIAL IV SCH ×4 (05:01→23:37)
[2021-07-03] MEDS: INSULIN ASPART (NovoLOG) 100 UNIT/ML VIAL SQ SCH ×4 (05:01→23:36)
[2021-07-03 06:05] LABS: Basophils % (A) 0 %; Eosinophils % (A) 0 %; HCT 39.9 % (34.0-46.0); HGB 13.9 gm/dL (11.4-16.0); Lymphocytes # (A) 0.9 k/uL (1.0-4.8); Lymphocytes % (A) 6 %; MCH 32.4 pg (25.0-35.0); MCHC 34.8 g/dL (31.0-37.0); MCV 93.3 fL (80.0-100.0); Mean Platelet Volume 7.4; Monocytes # (A) 0.8 k/uL (0-1.0); Monocytes % (A) 5 %; Neutrophils # (A) 13.5 k/uL (1.3-7.7); Neutrophils % (A) 88 %; Platelet Count 332 k/uL (150-450); RBC 4.28 m/uL (3.80-5.40); RDW 11.4 % (11.5-15.5); WBC 15.3 k/uL (3.8-10.6)
[2021-07-03 06:18] LABS: African American GFR (CKD) >90 (>60 ml/min/1.73 sqM); Anion Gap 13 mmol/L; Blood Urea Nitrogen 16 mg/dL (7-17); Calcium 9.2 mg/dL (8.4-10.2); Carbon Dioxide 26 mmol/L (22-30); Chloride 77 mmol/L (98-107); Glucose 120 mg/dL (74-99); Non-African American GFR(CKD) >90 (>60 ml/min/1.73 sqM)
[2021-07-03 06:37] LABS: Sodium 116 mmol/L (137-145)
--- NOTE | 2021-07-03 09:23 | P.PN ---
Subjective Patient is seen in follow-up for hyponatremia. Sodium level gradually improving. 116 this morning. Patient's currently sleeping. Oral intake has been fair. Hemodynamically stable. Vital signs are stable. General: On nasal cannula. HEENT: Head exam is unremarkable. LUNGS: Breath sounds decreased. HEART: Rate and Rhythm are regular. ABDOMEN: Obese. EXTREMITITES: No edema. Objective - Vital Signs Vital signs: Vital Signs Temp 97.7 F 07/03/21 04:00 Pulse 89 07/03/21 07:00 Resp 16 07/03/21 07:00 BP 112/59 07/03/21 07:00 Pulse Ox 96 07/03/21 07:00 Intake & Output 07/02/21 07/03/21 07/03/21 18:59 06:59 18:59 Intake Total 175 90 Output Total 0 0 Balance 175 90 Weight 114.1 kg 111 kg Intake: IV 175 90 3% 175 90 Output: Urine 0 0 Other: Voiding Method Bedpan # Voids 0 0 0 - Labs CBC & Chem 7: 07/03/21 05:09 07/03/21 05:09 Labs: Abnormal Lab Results - Last 24 Hours (Table) 07/02/21 07/02/21 07/02/21 Range/Units 01:35 01:35 10:39 WBC (3.8-10.6) k/uL RDW (11.5-15.5) % Neutrophils # (1.3-7.7) k/uL Lymphocytes # (1.0-4.8) k/uL Sodium 110 L* (137-145) mmol/L Chloride (98-107) mmol/L Creatinine (0.52-1.04) mg/dL Glucose (74-99) mg/dL POC Glucose (mg/dL) (75-99) mg/dL Urine Protein 2+ H (Negative) Urine Glucose (UA) 1+ H (Negative) Urine Blood Trace H (Negative) Amorphous Sediment Occasional H (None) /hpf Hyaline Casts 37 H (0-2) /lpf Urine Mucus Rare H (None) /hpf Ur Random Sodium 28 L (40-220) mmol/L 07/02/21 07/02/21 07/02/21 Range/Units 11:53 14:48 17:22 WBC (3.8-10.6) k/uL RDW (11.5-15.5) % Neutrophils # (1.3-7.7) k/uL Lymphocytes # (1.0-4.8) k/uL Sodium 110 L* (137-145) mmol/L Chloride (98-107) mmol/L Creatinine (0.52-1.04) mg/dL Glucose (74-99) mg/dL POC Glucose (mg/dL) 117 H 146 H (75-99) mg/dL Urine Protein (Negative) Urine Glucose (UA) (Negative) Urine Blood (Negative) Amorphous Sediment (None) /hpf Hyaline Casts (0-2) /lpf Urine Mucus (None) /hpf Ur Random Sodium (40-220) mmol/L 07/02/21 07/02/21 07/02/21 Range/Units 18:41 22:37 23:01 WBC (3.8-10.6) k/uL RDW (11.5-15.5) % Neutrophils # (1.3-7.7) k/uL Lymphocytes # (1.0-4.8) k/uL Sodium 111 L* 111 L* (137-145) mmol/L Chloride (98-107) mmol/L Creatinine (0.52-1.04) mg/dL Glucose (74-99) mg/dL POC Glucose (mg/dL) 140 H (75-99) mg/dL Urine Protein (Negative) Urine Glucose (UA) (Negative) Urine Blood (Negative) Amorphous Sediment (None) /hpf Hyaline Casts (0-2) /lpf Urine Mucus (None) /hpf Ur Random Sodium (40-220) mmol/L 07/03/21 07/03/21 07/03/21 Range/Units 04:51 05:09 05:09 WBC 15.3 H (3.8-10.6) k/uL RDW 11.4 L (11.5-15.5) % Neutrophils # 13.5 H (1.3-7.7) k/uL Lymphocytes # 0.9 L (1.0-4.8) k/uL Sodium 116 L* (137-145) mmol/L Chloride 77 L (98-107) mmol/L Creatinine 0.39 L (0.52-1.04) mg/dL Glucose 120 H (74-99) mg/dL POC Glucose (mg/dL) 143 H (75-99) mg/dL Urine Protein (Negative) Urine Glucose (UA) (Negative) Urine Blood (Negative) Amorphous Sediment (None) /hpf Hyaline Casts (0-2) /lpf Urine Mucus (None) /hpf Ur Random Sodium (40-220) mmol/L Microbiology - Last 24 Hours (Table) 07/01/21 15:15 Blood Culture - Preliminary Blood No Growth after 24 hours 07/01/21 15:10 Blood Culture - Preliminary Blood No Growth after 24 hours Assessment and Plan Plan: Assessment: 1. Hyponatremia. Appears euvolemic. Component of poor intake and use of thiazide diuretic. Also concern for SIADH. Urine osmolality 471. Urine sodium 28. TSH normal. Sodium level was 103 on admission and is up to 116 this morning. 2. COPD exacerbation. 3. Benign hypertension. 4. Hypokalemia from poor intake and diuretics. Replaced. Better. Plan: Currently off IV fluids. Continue to hold all diuretics. Continue to monitor sodium level closely. Goal rate of sodium correction 6-8 mEq per 24 hours. Avoid thiazide diuretics in the future.
[2021-07-03] MEDS: IPRATROPIUM-ALBUTEROL 3 ML NEB INHALATION SCH ×4 (09:27→21:39)
[2021-07-03] MEDS: PANTOPRAZOLE 40 MG/10 ML VIAL IV SCH (09:55)
[2021-07-03] MEDS: METOPROLOL TARTRATE 50 MG TAB PO SCH ×2 (09:55→21:00)
--- NOTE | 2021-07-03 10:55 | HP ---
HISTORY AND PHYSICAL [id number] white female remains confused in the ICU on restraints at this time. History of hypertension, nicotine addiction, morbid obesity, dyslipidemia, cough, congestion, shortness of breath, cough from her . She is not vaccinated for COVID-19. Chronic upper respiratory from him. EMS found her 80% on room air, placed her on non-rebreather, went up to 90s. She had a sodium of 103, which made her extremely confused. She is still confused at this time with slow rehydration per renal physician. BNP was 1890. Troponin negative. COVID-19 negative. D-dimer negative. CT chest, no pneumonia. She was given steroids, breathing treatments. Fourteen-point review of systems was unobtainable, otherwise negative. PAST MEDICAL HISTORY: Hypertension, dyslipidemia. SURGERIES: Adenoidectomy, tonsillectomy. SOCIAL HISTORY: Current everyday smoker. HOME MEDICINES: Lipitor 40 daily, lisinopril/hydrochlorothiazide 20/12.5 one daily, Lopressor 100 b.i.d., Norvasc 10 mg daily. ALLERGIES: ERYTHROMYCIN. PHYSICAL EXAMINATION: Temperature 98.6, blood pressure 150s to 160s over 70s to 100s, respiratory rate 16 to 18. Ophthalmologic: Pupils equal, round, reactive. Cardiovascular: Scattered wheeze and rhonchi. Cardiovascular: S1, S2. Hematology: 2+ edema. Neurologic: Alert and oriented x3. ASSESSMENT: 1. Severe hyponatremia. 2. Acute hypoxemic respiratory failure secondary to chronic obstructive pulmonary disease exacerbation. 3. Severe hyponatremia due to severe dehydration, poor oral intake. 4. SIADH; 3% saline being used. 5. Hypertension. 6. Nicotine addiction. 7. Chronic obstructive pulmonary disease. 8. Hypokalemia. 9. Morbid obesity. Continue BiPAP. rehydration. IV steroids, bronchodilators, DVT prophylaxis. Prognosis guarded. MMODL / IJN: [id number] /
--- NOTE | 2021-07-03 11:50 | P.PN ---
Subjective Progress Note Date: 07/03/21 Principal diagnosis: Hypoxic respiratory failure secondary to acute exacerbation of COPD 60-year-old white female patient with past medical history of hypertension, nicotine dependence, hyperlipidemia, morbid obesity who presented to the emergency department on 07/01/2021 complaining of a 3 day history of worsening shortness of breath. Patient noticed that shortness of breath became suddenly worse, she was not vaccinated for COVID-19, and her boyfriend had a upper respiratory infection last week. The EMS found her pulse ox to be around 80% on room air, she was placed on nonrebreather mask and her pulse ox improved up to 90%. She denied any chest pain, her cough is nonproductive, no fever, no chills, no nausea vomiting or diarrhea, she is usually not oxygen dependent at baseline. Her chest x-ray shows no active cardiopulmonary disease, EKG showed sinus rhythm. Her labs revealed a sodium of 103, potassium of 3.3, chloride was 61, white count was 12.2, hemoglobin is 15.1, lactic acid was 0.8, proBNP was 1890, troponin was less than 0.012, COVID-19 PCR was negative. D-dimer was negative at 0.55, and INR was 0.9. CT chest without contrast showed no pulmonary consolidation, no suspicious pulmonary mass, and slight increased pulmonary interstitial density. She was given a dose of Lasix in the emergency department. She was started on nebulized treatments and IV steroids, acute exacerbation of COPD, and nephrology consultation was requested. On 07/03/2021 patient seen in follow-up in intensive care unit, she is a bit somnolent but easily arousable, appears to be no acute distress, did not require BiPAP support last night, she is on 2 L of oxygen the pulse ox of 94-95%, no fever or chills overnight, vital signs have been stable, she is currently not on any running IV fluids, she has been intermittently receiving hypertonic saline which is currently off, this morning serum sodium is 119. White blood cell count is 15.3, hemoglobin is 13.9, potassium is 4.0, chloride is 77, BUN 16, creatinine 0.39. Procalcitonin was negative at 0.07, TSH at 0.701. Lung sounds are positive for diffuse wheezes, patient is on IV steroids and nebulized bronchodilators. Yesterday patient had episode of increased confusion and agitation, and she was given although and a clinical safety specialist was placed at the bedside. She has not required additional Haldol overnight. Objective - Vital Signs Vital signs: Vital Signs Temp 97.7 F 07/03/21 08:00 Pulse 92 07/03/21 10:00 Resp 17 07/03/21 10:00 BP 143/61 07/03/21 10:00 Pulse Ox 94 L 07/03/21 10:00 Intake & Output 07/02/21 07/03/21 07/03/21 18:59 06:59 18:59 Intake Total 175 90 0 Output Total 0 0 Balance 175 90 0 Weight 114.1 kg 111 kg Intake: IV 175 90 0 3% 175 90 0 Output: Urine 0 0 Other: Voiding Method Bedpan Bedpan # Voids 0 0 0 - Exam GENERAL EXAM: Alert, pleasant, 60-year-old white female, 2 L of oxygen a pulse ox of 93-96% comfortable in no apparent distress. HEAD: Normocephalic/atraumatic. EYES: Normal reaction of pupils, equal size. Conjunctiva pink, sclera white. NOSE: Clear with pink turbinates. THROAT: No erythema or exudates. NECK: No masses, no JVD, no thyroid enlargement, no adenopathy. CHEST: No chest wall deformity. Symmetrical expansion. LUNGS: Equal air entry with diminished breath sounds, mild wheezing CVS: Regular rate and rhythm, normal S1 and S2, no gallops, no murmurs, no rubs ABDOMEN: Soft, nontender. No hepatosplenomegaly, normal bowel sounds, no guarding or rigidity. EXTREMITIES: No clubbing, no edema, no cyanosis, 2+ pulses and upper and lower extremities. MUSCULOSKELETAL: Muscle strength and tone normal. SPINE: No scoliosis or deformity SKIN: No rashes CENTRAL NERVOUS SYSTEM: Alert and oriented -3. No focal deficits, tone is normal in all 4 extremities. PSYCHIATRIC: Alert and oriented -3. Appropriate affect. Intact judgment and insight. - Labs CBC & Chem 7: 07/03/21 05:09 07/03/21 09:34 Labs: Abnormal Lab Results - Last 24 Hours (Table) 07/02/21 07/02/21 07/02/21 Range/Units 01:35 10:39 11:53 WBC (3.8-10.6) k/uL RDW (11.5-15.5) % Neutrophils # (1.3-7.7) k/uL Lymphocytes # (1.0-4.8) k/uL Sodium 110 L* (137-145) mmol/L Chloride (98-107) mmol/L Creatinine (0.52-1.04) mg/dL Glucose (74-99) mg/dL POC Glucose (mg/dL) 117 H (75-99) mg/dL Ur Random Sodium 28 L (40-220) mmol/L 07/02/21 07/02/21 07/02/21 Range/Units 14:48 17:22 18:41 WBC (3.8-10.6) k/uL RDW (11.5-15.5) % Neutrophils # (1.3-7.7) k/uL Lymphocytes # (1.0-4.8) k/uL Sodium 110 L* 111 L* (137-145) mmol/L Chloride (98-107) mmol/L Creatinine (0.52-1.04) mg/dL Glucose (74-99) mg/dL POC Glucose (mg/dL) 146 H (75-99) mg/dL Ur Random Sodium (40-220) mmol/L 07/02/21 07/02/21 07/03/21 Range/Units 22:37 23:01 04:51 WBC (3.8-10.6) k/uL RDW (11.5-15.5) % Neutrophils # (1.3-7.7) k/uL Lymphocytes # (1.0-4.8) k/uL Sodium 111 L* (137-145) mmol/L Chloride (98-107) mmol/L Creatinine (0.52-1.04) mg/dL Glucose (74-99) mg/dL POC Glucose (mg/dL) 140 H 143 H (75-99) mg/dL Ur Random Sodium (40-220) mmol/L 07/03/21 07/03/21 07/03/21 Range/Units 05:09 05:09 09:34 WBC 15.3 H (3.8-10.6) k/uL RDW 11.4 L (11.5-15.5) % Neutrophils # 13.5 H (1.3-7.7) k/uL Lymphocytes # 0.9 L (1.0-4.8) k/uL Sodium 116 L* 119 L* (137-145) mmol/L Chloride 77 L (98-107) mmol/L Creatinine 0.39 L (0.52-1.04) mg/dL Glucose 120 H (74-99) mg/dL POC Glucose (mg/dL) (75-99) mg/dL Ur Random Sodium (40-220) mmol/L Microbiology - Last 24 Hours (Table) 07/01/21 15:15 Blood Culture - Preliminary Blood No Growth after 24 hours 07/01/21 15:10 Blood Culture - Preliminary Blood No Growth after 24 hours Assessment and Plan Plan: Assessment: #1. Acute hypoxic respiratory failure related to acute exacerbation of COPD. COVID-19 PCR was negative, chest x-ray showed no acute pulmonary process #2. Severe hyponatremia, likely hypovolemic related to poor intake and thiazide diuretic therapy, possible SIADH. Nephrology is following. Patient was on 3% hypertonic saline, today sodium is 119 #3. Hypertension #4. Current and ongoing history of smoking #5. Suspect underlying COPD, severity of which is not known #6. Hypokalemia, related to dehydration and diuretic therapy, being replaced per protocol #7. Hypertension #8. Morbid obesity with BMI of 46 kg/m Plan: Continue IV steroids and bronchodilators Has not required BiPAP support overnight, She is suspected to have underlying sleep apnea, BiPAP support at bedtime and as needed Serum sodium management per nephrology Haldol as needed for agitation and confusion GI and DVT prophylaxis Follow-up labs and electrolytes per nephrology recommendations We'll continue to closely follow I performed a history & physical examination of the patient and discussed their management with my nurse practitioner, Monique Stewart. I reviewed the nurse practitioner's note and agree with the documented findings and plan of care. Lung sounds are positive for diffuse wheezes throughout the lung barros. The findings and the impression was discussed with the patient. I attest to the documentation by the nurse practitioner. Time with Patient: Less than 30
[2021-07-03 11:59] LABS: Glucose,Whole Blood 126 mg/dL (75-99)
[2021-07-03] MEDS ORDERED: amLODIPine 10 MG TAB PO SCH (12:00)
[2021-07-03] MEDS ORDERED: DEXTROSE 5% IN WATER 1,000 ML IV ONE (12:14)
--- NOTE | 2021-07-03 12:26 | ECHOF ---
Referral Reason:shortness of breath MEASUREMENTS -------- HEIGHT: 157.5 cm WEIGHT: 113.9 kg BP: IVSd: 1.2 cm (0.6 - 1.1) LVIDd: 3.4 cm (3.9 - 5.3) LVPWd: 1.2 cm (0.6 - 1.1) IVSs: 1.7 cm LVIDs: 2.0 cm LVPWs: 1.9 cm Ao Diam: 3.5 cm (2.0 - 3.7) AV Cusp: 2.0 cm (1.5 - 2.6) LA Diam: 2.9 cm (2.7 - 3.8) MV E Italo: 0.61 m/s MV DecT: 238 ms MV A Italo: 0.87 m/s MV E/A Ratio: 0.70 RAP: 5.00 mmHg RVSP: 12.14 mmHg FINDINGS -------- This was a technically difficult study with suboptimal views. The left ventricular size is normal. There is mild concentric left ventricular hypertrophy. Overa ll left ventricular systolic function is low-normal with, an EF between 50 - 55 %. The RV was not well visualized. The left atrial size is normal. The right atrium was not well visualized. Lumason used The aortic valve is trileaflet and appears structurally normal. The mitral valve was not well visualized. There is trace mitral regurgitation. The tricuspid valve was not well visualized. Trace tricuspid regurgitation present. Right ventric ular systolic pressure is normal at < 35 mmHg. The pulmonic valve was not well visualized. The aortic root size is normal. IVC Not well visulized. There is no pericardial effusion. CONCLUSIONS -------- 1. The left ventricular size is normal. 2. There is mild concentric left ventricular hypertrophy. 3. Overall left ventricular systolic function is low-normal with, an EF between 50 - 55 %. 4. There is trace mitral regurgitation. 5. Trace tricuspid regurgitation present. 6. There is no pericardial effusion. TELESALES SUPERVISOR: Manisha Butt, [facility]
[2021-07-03] MEDS: amLODIPine 10 MG TAB PO SCH (14:14)
[2021-07-03] MEDS: ENOXAPARIN 40 MG/0.4 ML SYRINGE SQ SCH (14:14)
--- NOTE | 2021-07-03 15:07 | CDI ---
Documentation Clarification Form Date: 07/03/2021 02:53:35 PM From: Xochitl RosaVargasRAIN schneider, CCDS Admit Date: 07/01/2021 06:02:00 PM Patient Name: Nichole Viramontes Visit Number: [id number] Discharge Date: ATTENTION: The Clinical Documentation Specialists (CDI) and [facility] Coding Staff appreciate your assistance in clarifying documentation. Please respond to the clarification below the line at the bottom and electronically sign. The CDI & [facility] Coding staff will review the response and follow-up if needed. Please note: Queries are made part of the Legal Health Record. If you have any questions, please contact the author of this message via ITS. Dr. Hayden Gutierrez: Per the 07/03 Pulmonary Progress Note the patient had an episode of confusion an agitation the previous night requiring Haldol an a beside sitter. . Patient received IV Haldol 2 mg q2H prn on 07/02. Per the 07/03 History & Physical the patient is in the ICU and remains confused on restraints. Additional clarification regarding the patient's confusion is requested. History/Risk Factors per the 07/03 H/P: Hypertension, Hyperlipidemia, Current Smoker, COPD, Morbid Obesity (BMI 44.8). Clinical Indicators per the 07/01 ED note: Presented to the ED on 07/01 via EMS with SOB, PO 80% on RA, improved on nrb to 90s. Admitted with Hyponatremia, COPD exacerbation, Respiratory Failure w/Hypoxia an CHF exacerbation. 07/01 VS: T 97.3, P 77, R 32 - 38 (sob, accessory use, nasal flaring, shallow, tachypnea), BP 195/106, PO 99 nrb - to Bipap 50%. 07/01 LAB: WBC 12.2, Neut 11.0, Lymph 0.5. Na 103, K 3.3, Cl 61, Cr 0.28, Glucose 171, Mag 3.5, AST 59, ALT 40 07/01 COVID: Negative 07/02 UA: 2+ protein, 1+ glucose, trace blood, Hyaline casts 37. 07/01 CXR: Negative. CT Chest: negative. 07/01 EKG: R 68, nsr. Repeat: R 81 undetermined rhythm. Treatment 07/01: Admit to ICU, Telemetry, Insulin sl scale, I&O, Blood cultures, O2: nrb - BiPAP, INH Duoneb, IV Solumedrol, IV Mag Sulfate/Dextrose, IV Lasix 40 mg x1, IV Na Cl 3% saline 40 mls/hr q12H. Please clarify the if the following is present: [ ] Metabolic Encephalopathy [ ] Other Encephalopathy [ ] Other, please specify [ ] Unable to determine (Template Last Revised: October 2020) MTDD
--- NOTE | 2021-07-03 15:18 | CDI ---
Documentation Clarification Form Date: 07/03/2021 03:08:00 PM From: Xochitl VargasRAIN schneider, CCDS Admit Date: 07/01/2021 06:02:00 PM Patient Name: Nichole Viramontes Visit Number: [id number] Discharge Date: ATTENTION: The Clinical Documentation Specialists (CDI) and [facility] Coding Staff appreciate your assistance in clarifying documentation. Please respond to the clarification below the line at the bottom and electronically sign. The CDI & [facility] Coding staff will review the response and follow-up if needed. Please note: Queries are made part of the Legal Health Record. If you have any questions, please contact the author of this message via ITS. Dr. Willam Campbell: Heart Failure is documented in the 07/01 ED Medical Decision Making: COPD with possible Heart Failure and "this patient has a high probability of imminent or life-threatening deterioration due to hypoxic respiratory failure, COPD exacerbation, hyponatremia, heart failure exacerbation" Also documented in the 07/02 CXR History: COPD, CHF. Additional information regarding the type, acuity of CHF is requested. History/Risk Factors per the 07/03 H/P: Hypertension, Hyperlipidemia, Current Smoker, COPD, Morbid Obesity (BMI 44.8). Clinical Indicators per the 07/01 ED note: Presented to the ED on 07/01 via EMS with SOB, PO 80% on RA, improved on nrb to 90s. Admitted with Hyponatremia, COPD exacerbation, Respiratory Failure w/Hypoxia an CHF exacerbation. 07/01 VS: T 97.3, P 77, R 32 - 38 (sob, accessory use, nasal flaring, shallow, tachypnea), BP 195/106, PO 99 nrb - to Bipap 50%. 07/01 LAB: WBC 12.2, Neut 11.0, Lymph 0.5. Na 103, K 3.3, Cl 61, Cr 0.28, Glucose 171, Mag 3.5, AST 59, ALT 40 07/01 COVID: Negative 07/02 UA: 2+ protein, 1+ glucose, trace blood, Hyaline casts 37. 07/01 CXR: Negative. CT Chest: negative. 07/01 EKG: R 68, nsr. Repeat: R 81 undetermined rhythm. 07/02 ECHO: Mild concentric left ventricular hypertrophy. Left ventricular systolic function low-normal, EF 50-55%. Trace MR & TR. Treatment 07/01: Admit to ICU, Telemetry, Insulin sl scale, I&O, Blood cultures, O2: nrb - BiPAP, INH Duoneb, IV Solumedrol, IV Mag Sulfate/Dextrose, IV Lasix 40 mg x1, IV Na Cl 3% saline 40 mls/hr q12H. 07/02 Cardiology Consult: SOB & mental status changes. Viral infection. Severe Hyponatremia. Ordered ECHO to assess cardiac function, continued Metoprolol, Amlodipine & monitor BP. In your professional opinion, can you please clarify the acuity and type of CHF if known? [ x ] Unable to determine (Template Last Revised: September 2020) Unable to determine MTDD
[2021-07-03] MEDS: SODIUM CHLORIDE 3%(HYPERTONIC) 500 ML IV SCH (18:23)
[2021-07-03 18:28] LABS: Glucose,Whole Blood 141 mg/dL (75-99)
[2021-07-03] MEDS: ATORVASTATIN 40 MG TAB PO SCH (20:08)
[2021-07-03] MEDS: BUDESONIDE 1 MG/2 ML NEBU INHALATION SCH (21:39)
[2021-07-03] MEDS: FORMOTEROL FUMARATE 20 MCG/2 ML NEBU INHALATION SCH (21:39)
[2021-07-03 23:34] LABS: Glucose,Whole Blood 150 mg/dL (75-99)
[2021-07-04 03:31] LABS: Basophils % (A) 0 %; Eosinophils # (A) 0.1 k/uL (0-0.7); Eosinophils % (A) 0 %; HCT 41.7 % (34.0-46.0); HGB 14.3 gm/dL (11.4-16.0); Lymphocytes # (A) 0.8 k/uL (1.0-4.8); Lymphocytes % (A) 5 %; MCH 32.5 pg (25.0-35.0); MCHC 34.3 g/dL (31.0-37.0); MCV 94.9 fL (80.0-100.0); Mean Platelet Volume 7.6; Monocytes % (A) 7 %; Neutrophils # (A) 11.9 k/uL (1.3-7.7); Neutrophils % (A) 86 %; Platelet Count 350 k/uL (150-450); RDW 11.5 % (11.5-15.5); WBC 13.8 k/uL (3.8-10.6)
[2021-07-04 03:41] LABS: ALT 42 U/L (4-34); AST 42 U/L (14-36); African American GFR (CKD) >90 (>60 ml/min/1.73 sqM); Albumin 4.2 g/dL (3.5-5.0); Alkaline Phosphatase 81 U/L (38-126); Anion Gap 9 mmol/L; Blood Urea Nitrogen 13 mg/dL (7-17); Calcium 9.5 mg/dL (8.4-10.2); Carbon Dioxide 33 mmol/L (22-30); Chloride 79 mmol/L (98-107); Glucose 134 mg/dL (74-99); Non-African American GFR(CKD) >90 (>60 ml/min/1.73 sqM); Potassium 3.5 mmol/L (3.5-5.1); Sodium 121 mmol/L (137-145); Total Bilirubin 0.6 mg/dL (0.2-1.3); Total Protein 7.3 g/dL (6.3-8.2)
[2021-07-04 05:03] LABS: Glucose,Whole Blood 120 mg/dL (75-99)
[2021-07-04] MEDS: INSULIN ASPART (NovoLOG) 100 UNIT/ML VIAL SQ SCH ×4 (05:05→20:19)
[2021-07-04] MEDS: POTASSIUM CHLORIDE ER 20 MEQ TAB.ER PO SCH ×4 (05:05→15:03)
[2021-07-04] MEDS: methylPREDNISolone SOD SUCCI 40 MG/ML 1 ML VIAL IV SCH ×4 (05:05→23:25)
[2021-07-04] MEDS: PANTOPRAZOLE 40 MG TABLET PO SCH (06:24)
[2021-07-04] MEDS: IPRATROPIUM-ALBUTEROL 3 ML NEB INHALATION SCH ×4 (08:52→19:52)
[2021-07-04] MEDS: FORMOTEROL FUMARATE 20 MCG/2 ML NEBU INHALATION SCH ×2 (08:52→19:51)
[2021-07-04] MEDS: BUDESONIDE 1 MG/2 ML NEBU INHALATION SCH ×2 (08:52→19:52)
--- NOTE | 2021-07-04 08:53 | PN ---
PROGRESS NOTE [id number] white female remains in ICU. Her sodium went from 104 on admission up to 119. Remains on DuoNeb updrafts, Norvasc for blood pressure, Lipitor for dyslipidemia, Pulmicort for her breathing, IV Solu-Medrol, Protonix and metoprolol. She is getting slow rehydration per renal physician. As mentioned above, her labs are much improved today. She is sitting up in a chair, giving appropriate answers now, alert and oriented x3. Cardiovascular S1, S2. Lungs clear. GI soft. ASSESSMENT: 1. Dehydration. 2. Prerenal renal azotemia. 3. Viral syndrome. 4. Possible bronchitis. 5. Severe dehydration. 6. Prerenal renal insufficiency. The patient is improving with her sodium levels and her breathing and mental status. She will get out of the ICU and continue slow rehydration. Prognosis guarded. MMKALYANL / ADA: [id number] /
--- NOTE | 2021-07-04 09:36 | P.PN ---
Subjective Patient is seen in follow-up for hyponatremia. Sodium level gradually improving. 121 this morning. Oral intake is fair. Good urine output. No v omiting or diarrhea. Vital signs are stable. General: On nasal cannula. HEENT: Head exam is unremarkable. LUNGS: Breath sounds decreased. HEART: Rate and Rhythm are regular. ABDOMEN: Obese. EXTREMITITES: No edema. Objective - Vital Signs Vital signs: Vital Signs Temp 97.7 F 07/04/21 08:00 Pulse 101 H 07/04/21 09:00 Resp 14 07/04/21 09:00 BP 119/82 07/04/21 09:00 Pulse Ox 93 L 07/04/21 09:00 Intake & Output 07/03/21 07/04/21 07/04/21 18:59 06:59 18:59 Intake Total 300 Output Total 300 1200 200 Balance 0 -1200 -200 Weight 109.5 kg Intake: IV 300 3% 0 D5W 300 Output: Urine 300 1200 200 Other: Voiding Method Bedpan Bedpan # Voids 0 1 0 - Labs CBC & Chem 7: 07/04/21 03:04 07/04/21 03:04 Labs: Abnormal Lab Results - Last 24 Hours (Table) 07/03/21 07/03/21 07/03/21 Range/Units 09:34 11:58 12:19 WBC (3.8-10.6) k/uL Neutrophils # (1.3-7.7) k/uL Lymphocytes # (1.0-4.8) k/uL Sodium 119 L* 119 L* (137-145) mmol/L Chloride (98-107) mmol/L Carbon Dioxide (22-30) mmol/L Creatinine (0.52-1.04) mg/dL Glucose (74-99) mg/dL POC Glucose (mg/dL) 126 H (75-99) mg/dL AST (14-36) U/L ALT (4-34) U/L 07/03/21 07/03/21 07/03/21 Range/Units 14:52 18:27 20:35 WBC (3.8-10.6) k/uL Neutrophils # (1.3-7.7) k/uL Lymphocytes # (1.0-4.8) k/uL Sodium 118 L* 122 L (137-145) mmol/L Chloride (98-107) mmol/L Carbon Dioxide (22-30) mmol/L Creatinine (0.52-1.04) mg/dL Glucose (74-99) mg/dL POC Glucose (mg/dL) 141 H (75-99) mg/dL AST (14-36) U/L ALT (4-34) U/L 07/03/21 07/03/21 07/04/21 Range/Units 23:32 23:58 03:04 WBC 13.8 H (3.8-10.6) k/uL Neutrophils # 11.9 H (1.3-7.7) k/uL Lymphocytes # 0.8 L (1.0-4.8) k/uL Sodium 120 L (137-145) mmol/L Chloride (98-107) mmol/L Carbon Dioxide (22-30) mmol/L Creatinine (0.52-1.04) mg/dL Glucose (74-99) mg/dL POC Glucose (mg/dL) 150 H (75-99) mg/dL AST (14-36) U/L ALT (4-34) U/L 07/04/21 07/04/21 Range/Units 03:04 05:01 WBC (3.8-10.6) k/uL Neutrophils # (1.3-7.7) k/uL Lymphocytes # (1.0-4.8) k/uL Sodium 121 L (137-145) mmol/L Chloride 79 L (98-107) mmol/L Carbon Dioxide 33 H (22-30) mmol/L Creatinine 0.35 L (0.52-1.04) mg/dL Glucose 134 H (74-99) mg/dL POC Glucose (mg/dL) 120 H (75-99) mg/dL AST 42 H (14-36) U/L ALT 42 H (4-34) U/L Microbiology - Last 24 Hours (Table) 07/01/21 15:15 Blood Culture - Preliminary Blood No Growth after 48 hours 07/01/21 15:10 Blood Culture - Preliminary Blood No Growth after 48 hours Assessment and Plan Plan: Assessment: 1. Hyponatremia. Appears euvolemic. Component of poor intake and use of thiazide diuretic. Also concern for SIADH. Urine osmolality 471. Urine sodium 28. TSH normal. Sodium level was 103 on admission and is up to 121 this morning. 2. COPD exacerbation. 3. Benign hypertension. Controlled. 4. Hypokalemia from poor intake. Being replaced. Plan: Currently off IV fluids. Continue to hold all diuretics. Continue to monitor sodium level closely - repeat next level at 10 AM. Goal rate of sodium correction 6-8 mEq per 24 hours. Avoid thiazide diuretics in the future.
[2021-07-04] MEDS: ENOXAPARIN 40 MG/0.4 ML SYRINGE SQ SCH (09:41)
[2021-07-04] MEDS: METOPROLOL TARTRATE 50 MG TAB PO SCH ×2 (09:41→20:09)
[2021-07-04 11:06] LABS: Potassium 3.5 mmol/L (3.5-5.1)
[2021-07-04 11:14] LABS: Glucose,Whole Blood 232 mg/dL (75-99)
--- NOTE | 2021-07-04 12:00 | P.PN ---
Subjective Progress Note Date: 07/04/21 Principal diagnosis: Hypoxic respiratory failure secondary to acute exacerbation of COPD 60-year-old white female patient with past medical history of hypertension, nicotine dependence, hyperlipidemia, morbid obesity who presented to the emergency department on 07/01/2021 complaining of a 3 day history of worsening shortness of breath. Patient noticed that shortness of breath became suddenly worse, she was not vaccinated for COVID-19, and her boyfriend had a upper respiratory infection last week. The EMS found her pulse ox to be around 80% on room air, she was placed on nonrebreather mask and her pulse ox improved up to 90%. She denied any chest pain, her cough is nonproductive, no fever, no chills, no nausea vomiting or diarrhea, she is usually not oxygen dependent at baseline. Her chest x-ray shows no active cardiopulmonary disease, EKG showed sinus rhythm. Her labs revealed a sodium of 103, potassium of 3.3, chloride was 61, white count was 12.2, hemoglobin is 15.1, lactic acid was 0.8, proBNP was 1890, troponin was less than 0.012, COVID-19 PCR was negative. D-dimer was negative at 0.55, and INR was 0.9. CT chest without contrast showed no pulmonary consolidation, no suspicious pulmonary mass, and slight increased pulmonary interstitial density. She was given a dose of Lasix in the emergency department. She was started on nebulized treatments and IV steroids, acute exacerbation of COPD, and nephrology consultation was requested. On 07/03/2021 patient seen in follow-up in intensive care unit, she is a bit somnolent but easily arousable, appears to be no acute distress, did not require BiPAP support last night, she is on 2 L of oxygen the pulse ox of 94-95%, no fever or chills overnight, vital signs have been stable, she is currently not on any running IV fluids, she has been intermittently receiving hypertonic saline which is currently off, this morning serum sodium is 119. White blood cell count is 15.3, hemoglobin is 13.9, potassium is 4.0, chloride is 77, BUN 16, creatinine 0.39. Procalcitonin was negative at 0.07, TSH at 0.701. Lung sounds are positive for diffuse wheezes, patient is on IV steroids and nebulized bronchodilators. Yesterday patient had episode of increased confusion and agitation, and she was given although and a safety specialist was placed at the bedside. She has not required additional Haldol overnight. The patient is seen today 07/04/2021 in follow-up in the intensive care unit. She is much more awake and alert. She is up in a chair at the bedside. Denies any worsening shortness of breath, cough or congestion. She is maintaining O2 saturations in the 90s on 2 L/m per nasal cannula. No IV fluids. Her sodium is currently 124. White count 13.8. Hemoglobin 14.3. Potassium 3.5. Chloride 79. CO2 33. Creatinine 0.35. Blood cultures revealed no growth. Objective - Vital Signs Vital signs: Vital Signs Temp 97.7 F 07/04/21 08:00 Pulse 101 H 07/04/21 09:00 Resp 14 07/04/21 09:00 BP 119/82 07/04/21 09:00 Pulse Ox 93 L 07/04/21 09:00 Intake & Output 07/03/21 07/04/21 07/04/21 18:59 06:59 18:59 Intake Total 300 Output Total 300 1200 300 Balance 0 -1200 -300 Weight 109.5 kg Intake: IV 300 3% 0 D5W 300 Output: Urine 300 1200 300 Other: Voiding Method Bedpan Bedpan # Voids 0 1 0 - Exam GENERAL EXAM: Alert, pleasant, 60-year-old female patient, 2 L of oxygen a pulse ox of 93% comfortable in no apparent distress. HEAD: Normocephalic/atraumatic. EYES: Normal reaction of pupils, equal size. Conjunctiva pink, sclera white. NOSE: Clear with pink turbinates. THROAT: No erythema or exudates. NECK: No masses, no JVD, no thyroid enlargement, no adenopathy. CHEST: No chest wall deformity. Symmetrical expansion. LUNGS: Equal air entry with diminished breath sounds, mild wheezing CVS: Regular rate and rhythm, normal S1 and S2, no gallops, no murmurs, no rubs ABDOMEN: Soft, nontender. No hepatosplenomegaly, normal bowel sounds, no guarding or rigidity. EXTREMITIES: No clubbing, no edema, no cyanosis, 2+ pulses and upper and lower extremities. MUSCULOSKELETAL: Muscle strength and tone normal. SPINE: No scoliosis or deformity SKIN: No rashes CENTRAL NERVOUS SYSTEM: No focal deficits, tone is normal in all 4 extremities. PSYCHIATRIC: Alert and oriented -3. Appropriate affect. Intact judgment and insight. - Labs CBC & Chem 7: 07/04/21 03:04 07/04/21 10:39 Labs: Abnormal Lab Results - Last 24 Hours (Table) 07/03/21 07/03/21 07/03/21 Range/Units 11:58 12:19 14:52 WBC (3.8-10.6) k/uL Neutrophils # (1.3-7.7) k/uL Lymphocytes # (1.0-4.8) k/uL Sodium 119 L* 118 L* (137-145) mmol/L Chloride (98-107) mmol/L Carbon Dioxide (22-30) mmol/L Creatinine (0.52-1.04) mg/dL Glucose (74-99) mg/dL POC Glucose (mg/dL) 126 H (75-99) mg/dL AST (14-36) U/L ALT (4-34) U/L 07/03/21 07/03/21 07/03/21 Range/Units 18:27 20:35 23:32 WBC (3.8-10.6) k/uL Neutrophils # (1.3-7.7) k/uL Lymphocytes # (1.0-4.8) k/uL Sodium 122 L (137-145) mmol/L Chloride (98-107) mmol/L Carbon Dioxide (22-30) mmol/L Creatinine (0.52-1.04) mg/dL Glucose (74-99) mg/dL POC Glucose (mg/dL) 141 H 150 H (75-99) mg/dL AST (14-36) U/L ALT (4-34) U/L 07/03/21 07/04/21 07/04/21 Range/Units 23:58 03:04 03:04 WBC 13.8 H (3.8-10.6) k/uL Neutrophils # 11.9 H (1.3-7.7) k/uL Lymphocytes # 0.8 L (1.0-4.8) k/uL Sodium 120 L 121 L (137-145) mmol/L Chloride 79 L (98-107) mmol/L Carbon Dioxide 33 H (22-30) mmol/L Creatinine 0.35 L (0.52-1.04) mg/dL Glucose 134 H (74-99) mg/dL POC Glucose (mg/dL) (75-99) mg/dL AST 42 H (14-36) U/L ALT 42 H (4-34) U/L 07/04/21 07/04/21 07/04/21 Range/Units 05:01 10:39 11:12 WBC (3.8-10.6) k/uL Neutrophils # (1.3-7.7) k/uL Lymphocytes # (1.0-4.8) k/uL Sodium 124 L (137-145) mmol/L Chloride (98-107) mmol/L Carbon Dioxide (22-30) mmol/L Creatinine (0.52-1.04) mg/dL Glucose (74-99) mg/dL POC Glucose (mg/dL) 120 H 232 H (75-99) mg/dL AST (14-36) U/L ALT (4-34) U/L Microbiology - Last 24 Hours (Table) 07/01/21 15:15 Blood Culture - Preliminary Blood No Growth after 48 hours 07/01/21 15:10 Blood Culture - Preliminary Blood No Growth after 48 hours Assessment and Plan Assessment: 1 Acute hypoxic respiratory failure related to acute exacerbation of COPD. COVID-19 PCR was negative, chest x-ray showed no acute pulmonary process 2 Severe hyponatremia, likely hypovolemic related to poor intake and thiazide diuretic therapy, possible SIADH. Nephrology is following. Patient was on 3% hypertonic saline, today sodium is 124 3 Hypertension 4 Current and ongoing history of smoking 5 Suspect underlying COPD, severity of which is not known 6 Hypokalemia, related to dehydration and diuretic therapy, being replaced per protocol 7 Hypertension 8 Morbid obesity with BMI of 46 kg/m Plan: The patient was seen and evaluated by Dr. Anil Boland from the pulmonary and critical care standpoint Continue IV Solu Medrol, bronchodilators Sodium 124 Transfer to a regular medical floor today We'll continue to follow I, the cosigning physician, performed a history & physical examination of the patient. Lungs sounds with faint end x-ray wheeze, diminished. Maintaining good O2 saturations in the 90s on 2 L/m per nasal cannula. I discussed the assessment and plan of care with my nurse practitioner, Charlene New. I attest to the above note as dictated by her.
[2021-07-04 12:38] LABS: Glucose,Whole Blood 198 mg/dL (75-99)
[2021-07-04] MEDS: amLODIPine 10 MG TAB PO SCH (14:16)
[2021-07-04 14:34] VITALS: BMI 44.1
--- NOTE | 2021-07-04 15:27 | PN ---
PROGRESS NOTE 60-year-old white female who came with confusion due to severe hyponatremia secondary tracheobronchitis and viral syndrome. She caught from her . Sodium is up to 124. She is more alert, sitting in a chair, talking well. Sugars in the mid 100s to 200s. Cardiovascular S1-S2, hematology negative Homans'. Psych: Fair mood and affect. White count down to 13.8. The patient had a procalcitonin 0.07. She is clinically improving. Her lungs are mild wheeze. Hematology negative Homans. Psych: Fair mood and affect. Vital signs: Temp 98.1, pulse 66, respiratory 16 to 18, blood pressure 160/64, 97 on 2 L. Continue to maintain slow hydration. Wean off which will improve her severe hyponatremia from a viral illness with possible COPD exacerbation, diabetes mellitus. Prognosis guarded. Discharge home once sodium improves over next day or 2 if she is much better and improving daily. MMODL / IJN: [id number] /
[2021-07-04 16:28] LABS: Potassium 5.1 mmol/L (3.5-5.1)
[2021-07-04 17:25] LABS: Glucose,Whole Blood 117 mg/dL (75-99)
[2021-07-04] MEDS: ATORVASTATIN 40 MG TAB PO SCH (20:10)
[2021-07-04 20:15] LABS: Glucose,Whole Blood 173 mg/dL (75-99)
[2021-07-05] MEDS: methylPREDNISolone SOD SUCCI 40 MG/ML 1 ML VIAL IV SCH ×2 (05:49→21:04)
[2021-07-05 07:10] LABS: Glucose,Whole Blood 131 mg/dL (75-99)
[2021-07-05] MEDS: BUDESONIDE 1 MG/2 ML NEBU INHALATION SCH ×2 (07:43→20:35)
[2021-07-05] MEDS: IPRATROPIUM-ALBUTEROL 3 ML NEB INHALATION SCH ×4 (07:43→20:35)
[2021-07-05] MEDS: FORMOTEROL FUMARATE 20 MCG/2 ML NEBU INHALATION SCH ×2 (07:43→20:35)
[2021-07-05 07:44] LABS: Basophils % (A) 0 %; Eosinophils % (A) 0 %; HCT 41.5 % (34.0-46.0); Lymphocytes % (A) 7 %; MCH 32.3 pg (25.0-35.0); MCHC 33.7 g/dL (31.0-37.0); MCV 95.9 fL (80.0-100.0); Mean Platelet Volume 7.2; Monocytes # (A) 1.2 k/uL (0-1.0); Monocytes % (A) 8 %; Neutrophils # (A) 12.6 k/uL (1.3-7.7); Neutrophils % (A) 84 %; Platelet Count 389 k/uL (150-450); RBC 4.32 m/uL (3.80-5.40); RDW 11.6 % (11.5-15.5)
[2021-07-05] MEDS: METOPROLOL TARTRATE 50 MG TAB PO SCH ×2 (08:41→21:04)
[2021-07-05] MEDS: ENOXAPARIN 40 MG/0.4 ML SYRINGE SQ SCH (08:41)
[2021-07-05] MEDS: INSULIN ASPART (NovoLOG) 100 UNIT/ML VIAL SQ SCH ×4 (08:41→21:02)
[2021-07-05] MEDS: PANTOPRAZOLE 40 MG TABLET PO SCH (08:41)
[2021-07-05] MEDS ORDERED: LACTULOSE 20 GM/30 ML CUP PO ONE (10:10)
[2021-07-05] MEDS: PSYLLIUM HUSK 100% 6 GM PACKET PO SCH (10:48)
[2021-07-05 11:15] LABS: African American GFR (CKD) 122.9 (60.0-200.0); Albumin 4.3 g/dL (3.8-4.9); Albumin/Globulin Ratio 1.81 (1.60-3.17); Anion Gap 10.4 mmol/L (10.00-18.00); BUN/Creat Ratio 41.19 Ratio (12.00-20.00); Blood Urea Nitrogen 20.1 mg/dL (9.0-27.0); Calcium 9.9 mg/dL (8.7-10.3); Carbon Dioxide 30.3 mmol/L (20.0-27.5); Globulin 2.4 g/dL (1.6-3.3); Potassium 4.7 mmol/L (3.5-5.5); Total Bilirubin 0.4 mg/dL (0.30-1.20); Total Protein 6.6 g/dL (6.2-8.2)
[2021-07-05] MEDS: amLODIPine 10 MG TAB PO SCH (12:08)
[2021-07-05 12:14] LABS: Glucose,Whole Blood 134 mg/dL (75-99)
--- NOTE | 2021-07-05 15:02 | P.PN ---
Subjective Progress Note Date: 07/05/21 Principal diagnosis: Hypoxic respiratory failure secondary to acute exacerbation of COPD 60-year-old white female patient with past medical history of hypertension, nicotine dependence, hyperlipidemia, morbid obesity who presented to the emergency department on 07/01/2021 complaining of a 3 day history of worsening shortness of breath. Patient noticed that shortness of breath became suddenly worse, she was not vaccinated for COVID-19, and her boyfriend had a upper respiratory infection last week. The EMS found her pulse ox to be around 80% on room air, she was placed on nonrebreather mask and her pulse ox improved up to 90%. She denied any chest pain, her cough is nonproductive, no fever, no chills, no nausea vomiting or diarrhea, she is usually not oxygen dependent at baseline. Her chest x-ray shows no active cardiopulmonary disease, EKG showed sinus rhythm. Her labs revealed a sodium of 103, potassium of 3.3, chloride was 61, white count was 12.2, hemoglobin is 15.1, lactic acid was 0.8, proBNP was 1890, troponin was less than 0.012, COVID-19 PCR was negative. D-dimer was negative at 0.55, and INR was 0.9. CT chest without contrast showed no pulmonary consolidation, no suspicious pulmonary mass, and slight increased pulmonary interstitial density. She was given a dose of Lasix in the emergency department. She was started on nebulized treatments and IV steroids, acute exacerbation of COPD, and nephrology consultation was requested. On 07/03/2021 patient seen in follow-up in intensive care unit, she is a bit somnolent but easily arousable, appears to be no acute distress, did not require BiPAP support last night, she is on 2 L of oxygen the pulse ox of 94-95%, no fever or chills overnight, vital signs have been stable, she is currently not on any running IV fluids, she has been intermittently receiving hypertonic saline which is currently off, this morning serum sodium is 119. White blood cell count is 15.3, hemoglobin is 13.9, potassium is 4.0, chloride is 77, BUN 16, creatinine 0.39. Procalcitonin was negative at 0.07, TSH at 0.701. Lung sounds are positive for diffuse wheezes, patient is on IV steroids and nebulized bronchodilators. Yesterday patient had episode of increased confusion and agitation, and she was given although and a director of public safety was placed at the bedside. She has not required additional Haldol overnight. The patient is seen today 07/04/2021 in follow-up in the intensive care unit. She is much more awake and alert. She is up in a chair at the bedside. Denies any worsening shortness of breath, cough or congestion. She is maintaining O2 saturations in the 90s on 2 L/m per nasal cannula. No IV fluids. Her sodium is currently 124. White count 13.8. Hemoglobin 14.3. Potassium 3.5. Chloride 79. CO2 33. Creatinine 0.35. Blood cultures revealed no growth. The patient is seen today 07/05/2021 in follow-up on the regular medical floor. Currently sitting up in a chair at the bedside. Awake and alert in no acute distress. Maintaining good O2 saturations in the mid 90s on 2 L/m per nasal cannula. She's afebrile. White count 15.0. Hemoglobin 14.0. Sodium 129. Potassium 4.7. Creatinine 0.5. Objective - Vital Signs Vital signs: Vital Signs Temp 97.8 F 07/05/21 11:37 Pulse 72 07/05/21 11:37 Resp 20 07/05/21 11:37 BP 148/96 07/05/21 11:37 Pulse Ox 95 07/05/21 08:50 Intake & Output 07/04/21 07/05/21 07/05/21 18:59 06:59 18:59 Intake Total 718 Output Total 300 Balance 418 Weight 109.5 kg Intake: Oral 718 Output: Urine 300 Other: Voiding Method Bedside Commode Bedside Commode Bedpan Bedpan # Voids 1 1 # Bowel Movements 0 - Exam GENERAL EXAM: Alert, pleasant, 60-year-old female patient, 2 L of oxygen a pulse ox of 95% comfortable in no apparent distress. HEAD: Normocephalic/atraumatic. EYES: Normal reaction of pupils, equal size. Conjunctiva pink, sclera white. NOSE: Clear with pink turbinates. THROAT: No erythema or exudates. NECK: No masses, no JVD, no thyroid enlargement, no adenopathy. CHEST: No chest wall deformity. Symmetrical expansion. LUNGS: Equal air entry with diminished breath sounds, mild wheezing CVS: Regular rate and rhythm, normal S1 and S2, no gallops, no murmurs, no rubs ABDOMEN: Soft, nontender. No hepatosplenomegaly, normal bowel sounds, no guard ing or rigidity. EXTREMITIES: No clubbing, no edema, no cyanosis, 2+ pulses and upper and lower extremities. MUSCULOSKELETAL: Muscle strength and tone normal. SPINE: No scoliosis or deformity SKIN: No rashes CENTRAL NERVOUS SYSTEM: No focal deficits, tone is normal in all 4 extremities. PSYCHIATRIC: Alert and oriented -3. Appropriate affect. Intact judgment and insight. - Labs CBC & Chem 7: 07/05/21 07:07 07/05/21 07:07 Labs: Abnormal Lab Results - Last 24 Hours (Table) 07/04/21 07/04/21 07/04/21 Range/Units 16:00 17:23 20:14 WBC (3.8-10.6) k/uL Neutrophils # (1.3-7.7) k/uL Monocytes # (0-1.0) k/uL Sodium 124 L (137-145) mmol/L Chloride (96-109) mmol/L Carbon Dioxide (20.0-27.5) mmol/L Creatinine (0.6-1.5) mg/dL BUN/Creatinine Ratio (12.00-20.00) Ratio Glucose (70-110) mg/dL POC Glucose (mg/dL) 117 H 173 H (75-99) mg/dL 07/05/21 07/05/21 07/05/21 Range/Units 07:07 07:07 07:09 WBC 15.0 H (3.8-10.6) k/uL Neutrophils # 12.6 H (1.3-7.7) k/uL Monocytes # 1.2 H (0-1.0) k/uL Sodium 129 L (137-145) mmol/L Chloride 88 L (96-109) mmol/L Carbon Dioxide 30.3 H (20.0-27.5) mmol/L Creatinine 0.5 L (0.6-1.5) mg/dL BUN/Creatinine Ratio 41.19 H (12.00-20.00) Ratio Glucose 135 H (70-110) mg/dL POC Glucose (mg/dL) 131 H (75-99) mg/dL 11/25/21 Range/Units 12:12 WBC (3.8-10.6) k/uL Neutrophils # (1.3-7.7) k/uL Monocytes # (0-1.0) k/uL Sodium (137-145) mmol/L Chloride (96-109) mmol/L Carbon Dioxide (20.0-27.5) mmol/L Creatinine (0.6-1.5) mg/dL BUN/Creatinine Ratio (12.00-20.00) Ratio Glucose (70-110) mg/dL POC Glucose (mg/dL) 134 H (75-99) mg/dL Microbiology - Last 24 Hours (Table) 07/01/21 15:15 Blood Culture - Preliminary Blood No Growth after 72 hours 07/01/21 15:10 Blood Culture - Preliminary Blood No Growth after 72 hours Assessment and Plan Assessment: 1 Acute hypoxic respiratory failure related to acute exacerbation of COPD. COVID-19 PCR was negative, chest x-ray showed no acute pulmonary process 2 Severe hyponatremia, likely hypovolemic related to poor intake and thiazide diuretic therapy, possible SIADH. Nephrology is following. Patient was on 3% hypertonic saline, today sodium is 129 3 Hypertension 4 Current and ongoing history of smoking 5 Suspect underlying COPD, severity of which is not known 6 Hypokalemia, related to dehydration and diuretic therapy, being replaced per protocol 7 Hypertension 8 Morbid obesity with BMI of 46 kg/m Plan: The patient was seen and evaluated by Dr. Anil Boland from the pulmonary and critical care standpoint Continue the current treatment plan We'll continue to follow I, the cosigning physician, performed a history & physical examination of the patient. Lungs sounds with faint end x-ray wheeze, diminished. Maintaining good O2 saturations in the 90s on 2 L/m per nasal cannula. I discussed the assessment and plan of care with my nurse practitioner, Charlene New. I attest to the above note as dictated by her.
--- NOTE | 2021-07-05 16:36 | P.PN ---
Subjective Progress Note Date: 07/05/21 Follow-up for hyponatremia. Objective - Vital Signs Vital signs: Vital Signs Temp 97.8 F 07/05/21 11:37 Pulse 84 07/05/21 15:57 Resp 20 07/05/21 11:37 BP 148/96 07/05/21 11:37 Pulse Ox 95 07/05/21 08:50 Intake & Output 07/04/21 07/05/21 07/05/21 18:59 06:59 18:59 Intake Total 718 300 Output Total 300 Balance 418 300 Weight 109.5 kg Intake: Oral 718 300 Output: Urine 300 Other: Voiding Method Bedside Commode Bedside Commode Bedpan Bedpan # Voids 1 1 # Bowel Movements 0 - Exam No acute distress S1-S2 heard Lungs clear No edema - Labs CBC & Chem 7: 07/05/21 07:07 07/05/21 07:07 Labs: Abnormal Lab Results - Last 24 Hours (Table) 07/04/21 07/04/21 07/05/21 Range/Units 17:23 20:14 07:07 WBC (3.8-10.6) k/uL Neutrophils # (1.3-7.7) k/uL Monocytes # (0-1.0) k/uL Sodium 129 L (135-145) mmol/L Chloride 88 L (96-109) mmol/L Carbon Dioxide 30.3 H (20.0-27.5) mmol/L Creatinine 0.5 L (0.6-1.5) mg/dL BUN/Creatinine Ratio 41.19 H (12.00-20.00) Ratio Glucose 135 H (70-110) mg/dL POC Glucose (mg/dL) 117 H 173 H (75-99) mg/dL 07/05/21 07/05/21 07/05/21 Range/Units 07:07 07:09 12:12 WBC 15.0 H (3.8-10.6) k/uL Neutrophils # 12.6 H (1.3-7.7) k/uL Monocytes # 1.2 H (0-1.0) k/uL Sodium (135-145) mmol/L Chloride (96-109) mmol/L Carbon Dioxide (20.0-27.5) mmol/L Creatinine (0.6-1.5) mg/dL BUN/Creatinine Ratio (12.00-20.00) Ratio Glucose (70-110) mg/dL POC Glucose (mg/dL) 131 H 134 H (75-99) mg/dL Microbiology - Last 24 Hours (Table) 07/01/21 15:15 Blood Culture - Preliminary Blood No Growth after 72 hours 07/01/21 15:10 Blood Culture - Preliminary Blood No Growth after 72 hours Assessment and Plan Assessment: #1 hyponatremia secondary to SIADH. #2 COPD exacerbation #3 benign essential hypertension #4 hypokalemia resolved Plan: #1 sodium improving. Continue to monitor off diuretics. #2 add salt tablets 1 g twice a day #3 labs in the morning
[2021-07-05 17:09] LABS: Glucose,Whole Blood 173 mg/dL (75-99)
--- NOTE | 2021-07-05 19:52 | P.PN ---
Progress Note - Text Progress Note Date: 07/05/21 60-year-old white female patient with past medical history of hypertension, nicotine dependence, hyperlipidemia, morbid obesity who presented to the emergency department on 07/01/2021 complaining of a 3 day history of worsening shortness of breath. Patient noticed that shortness of breath became suddenly worse, she was not vaccinated for COVID-19, and her boyfriend had a upper respiratory infection last week. The EMS found her pulse ox to be around 80% on room air, she was placed on nonrebreather mask and her pulse ox improved up to 90%. She denied any chest pain, her cough is nonproductive, no fever, no chills, no nausea vomiting or diarrhea, she is usually not oxygen dependent at baseline. Admitted with acute hypoxic respiratory failure from COPD exacerbation. Severe hyponatremia. July 05: Sitting up in a chair. Eating better. Feeling better. Slight cough. Patient states that she been drinking excessive water for a long time she was told to drink lots of water. Review of systems: Was done for constitutional, cardiovascular, GI, pulmonary. relevant finding as above Active Medications Albuterol/Ipratropium (Ipratropium-Albuterol 3 Ml Neb) 3 ml INHALATION RT-QID [facility] Last Admin: 07/05/21 15:43 Dose: 3 ml Documented by: Albuterol/Ipratropium (Ipratropium-Albuterol 3 Ml Neb) 3 ml INHALATION RT-Q2H PRN PRN Reason: Shortness Of Breath Or Wheezing Amlodipine Besylate (Amlodipine 10 Mg Tab) 10 mg PO DAILY@1200 [facility] Last Admin: 07/05/21 12:08 Dose: 10 mg Documented by: Atorvastatin Calcium (Atorvastatin 40 Mg Tab) 40 mg PO HS [facility] Last Admin: 07/04/21 20:10 Dose: 40 mg Documented by: Budesonide (Budesonide 1 Mg/2 Ml Nebu) 1 mg INHALATION RT-BID [facility] Last Admin: 07/05/21 07:43 Dose: 1 mg Documented by: Enoxaparin Sodium (Enoxaparin 40 Mg/0.4 Ml Syringe) 40 mg SQ DAILY [facility] Last Admin: 07/05/21 08:41 Dose: 40 mg Documented by: Formoterol Fumarate (Formoterol Fumarate 20 Mcg/2 Ml Nebu) 20 mcg INHALATION RT-BID [facility] Last Admin: 07/05/21 07:43 Dose: 20 mcg Documented by: Haloperidol Lactate (Haloperidol Lactate 5 Mg/Ml 1 Ml Vial) 2 mg IVP Q2H PRN PRN Reason: Agitation or Acute Psychosis Last Admin: 07/02/21 12:54 Dose: 2 mg Documented by: Insulin Aspart (Insulin Aspart (Novolog) 100 Unit/Ml Vial) 0 unit SQ ACHS [facility]; Protocol Last Admin: 07/05/21 17:36 Dose: 4 unit Documented by: Methylprednisolone Sodium Succinate (Methylprednisolone Sod Succi 40 Mg/Ml 1 Ml Vial) 40 mg IV Q12H [facility] Metoprolol Tartrate (Metoprolol Tartrate 50 Mg Tab) 100 mg PO BID [facility] Last Admin: 07/05/21 08:41 Dose: 100 mg Documented by: Naloxone HCl (Naloxone 0.4 Mg/Ml 1 Ml Vial) 0.2 mg IV Q2M PRN PRN Reason: Opioid Reversal Pantoprazole Sodium (Pantoprazole 40 Mg Tablet) 40 mg PO AC-[id number] [facility] Last Admin: 07/05/21 08:41 Dose: 40 mg Documented by: Psyllium Hydrophilic Mucilloid (Psyllium Husk 100% 6 Gm Packet) 6 gm PO DAILY [facility] Last Admin: 07/05/21 10:48 Dose: 6 gm Documented by: Sodium Chloride (Sodium Chloride Tab 1 Gm Tab) 1 gm PO BID [facility] On examination: VITAL SIGNS: 97.8, 72, 20, 148/96, 95% on 2 L GENERAL APPEARANCE: Sitting up in a chair, awake, not in distress HEENT: Normal external appearance of nose and ear. Oral cavity normal EYES: Pupils equal. Conjunctiva normal. NECK: JVD not raised. Mass not palpable. RESPIRATORY: Respiratory effort normal. Decreased breath sounds. CARDIOVASCULAR: First and second sounds normal. No edema. ABDOMEN: Soft. Liver and spleen not palpable. No tenderness. No mass palpable. PSYCHIATRY: Alert and oriented x3. Mood and affect normal. INVESTIGATIONS, reviewed in the clinical context: White count 15 hemoglobin 14 platelets 389 sodium 129 potassium 4.7 BUN 20 creatinine 0.5 Chest x-ray: Cardiomegaly. 2-D echo: EF 50-55% CT chest: No consolidation. Assessment and plan: -Acute hypoxic respiratory failure from COPD exacerbation: Improving Oxygen supplementation. -Possible obesity hypoventilation syndrome -Acute COPD exacerbation in a smoker: Improving DuoNeb 4 times a day. Cutback Solu-Medrol to 40 mg every 12 -Chronic nicotine dependence, cigarettes smoker Nicotine patch -Severe hyponatremia from excessive water intake. Drink patient has been drinking excessive water all her life. Discussed with the patient. Cutback free water intake to 1500 mL a day. Patient did receive hyper-tonic saline on presentation. All tablets -Essential hypertension -Morbid obesity BMI 44.2 Weight loss measures Patient counseled about fluid restriction. Changed to 1500 fluid intake per day. Salt tablets added. Cutback IV Solu-Medrol. Increase activity. Nicotine patch.
[2021-07-05 20:42] LABS: Glucose,Whole Blood 89 mg/dL (75-99)
[2021-07-05] MEDS: SODIUM CHLORIDE TAB 1 GM TAB PO SCH (21:04)
[2021-07-05] MEDS: NICOTINE 14MG/24HR PATCH TRANSDERM SCH (21:04)
[2021-07-05] MEDS: ATORVASTATIN 40 MG TAB PO SCH (21:04)
[2021-07-06 07:50] LABS: African American GFR (CKD) >90 (>60 ml/min/1.73 sqM); Anion Gap 8 mmol/L; Blood Urea Nitrogen 27 mg/dL (7-17); Calcium 9.2 mg/dL (8.4-10.2); Carbon Dioxide 31 mmol/L (22-30); Chloride 86 mmol/L (98-107); Glucose 121 mg/dL (74-99); Non-African American GFR(CKD) >90 (>60 ml/min/1.73 sqM); Sodium 125 mmol/L (137-145)
[2021-07-06 07:54] LABS: Glucose,Whole Blood 118 mg/dL (75-99)
[2021-07-06 07:55] LABS: Potassium 5.3 mmol/L (3.5-5.1)
[2021-07-06] MEDS: BUDESONIDE 1 MG/2 ML NEBU INHALATION SCH ×2 (07:59→20:01)
[2021-07-06] MEDS: FORMOTEROL FUMARATE 20 MCG/2 ML NEBU INHALATION SCH ×2 (07:59→20:01)
[2021-07-06] MEDS: IPRATROPIUM-ALBUTEROL 3 ML NEB INHALATION SCH ×4 (07:59→20:01)
[2021-07-06] MEDS: INSULIN ASPART (NovoLOG) 100 UNIT/ML VIAL SQ SCH ×4 (08:09→21:07)
[2021-07-06] MEDS: METOPROLOL TARTRATE 50 MG TAB PO SCH ×2 (08:29→21:13)
[2021-07-06] MEDS: PSYLLIUM HUSK 100% 6 GM PACKET PO SCH (08:29)
[2021-07-06] MEDS: PANTOPRAZOLE 40 MG TABLET PO SCH (08:29)
[2021-07-06] MEDS: methylPREDNISolone SOD SUCCI 40 MG/ML 1 ML VIAL IV SCH ×2 (08:29→21:14)
[2021-07-06] MEDS: ENOXAPARIN 40 MG/0.4 ML SYRINGE SQ SCH (08:29)
[2021-07-06] MEDS: SODIUM CHLORIDE TAB 1 GM TAB PO SCH ×2 (08:30→21:13)
[2021-07-06] MEDS: NICOTINE 14MG/24HR PATCH TRANSDERM SCH (08:36)
[2021-07-06 12:45] LABS: Glucose,Whole Blood 106 mg/dL (75-99)
[2021-07-06] MEDS: SODIUM BICARBONATE TAB 650 MG TAB PO SCH ×3 (12:51→21:19)
[2021-07-06] MEDS: amLODIPine 10 MG TAB PO SCH (12:51)
--- NOTE | 2021-07-06 15:34 | P.PN ---
Subjective Progress Note Date: 07/06/21 Follow-up for hyponatremia. Objective - Vital Signs Vital signs: Vital Signs Temp 97.7 F 07/06/21 12:40 Pulse 68 07/06/21 12:40 Resp 20 07/06/21 12:40 BP 163/97 07/06/21 12:40 Pulse Ox 91 L 07/06/21 12:40 Intake & Output 07/05/21 07/06/21 07/06/21 18:59 06:59 18:59 Intake Total 300 300 Balance 300 300 Weight 114.5 kg Intake: Oral 300 300 Other: Voiding Method Bedside Commode Toilet Bedside Commode # Voids 3 2 - Exam No acute distress S1-S2 heard Lungs clear No edema - Labs CBC & Chem 7: 07/05/21 07:07 07/06/21 06:47 Labs: Abnormal Lab Results - Last 24 Hours (Table) 07/05/21 07/06/21 07/06/21 Range/Units 17:08 06:47 07:52 Sodium 125 L (137-145) mmol/L Potassium 5.3 H (3.5-5.1) mmol/L Chloride 86 L (98-107) mmol/L Carbon Dioxide 31 H (22-30) mmol/L BUN 27 H (7-17) mg/dL Creatinine 0.39 L (0.52-1.04) mg/dL Glucose 121 H (74-99) mg/dL POC Glucose (mg/dL) 173 H 118 H (75-99) mg/dL 07/06/21 Range/Units 12:41 Sodium (137-145) mmol/L Potassium (3.5-5.1) mmol/L Chloride (98-107) mmol/L Carbon Dioxide (22-30) mmol/L BUN (7-17) mg/dL Creatinine (0.52-1.04) mg/dL Glucose (74-99) mg/dL POC Glucose (mg/dL) 106 H (75-99) mg/dL Microbiology - Last 24 Hours (Table) 07/01/21 15:15 Blood Culture - Preliminary Blood No Growth after 96 hours 07/01/21 15:10 Blood Culture - Preliminary Blood No Growth after 96 hours Assessment and Plan Assessment: #1 hyponatremia secondary to SIADH. #2 COPD exacerbation #3 benign essential hypertension #4 hypokalemia resolved Plan: #1 sodium dropped. On salt tablets 1 g twice a day. #2 tolvaptan 15 mg once today. #3 labs in the morning
[2021-07-06] MEDS ORDERED: TOLVAPTAN 15 MG 1/2 TABLET PO ONE (16:00)
--- NOTE | 2021-07-06 16:55 | P.PN ---
Progress Note - Text Progress Note Date: 07/06/21 60-year-old white female patient with past medical history of hypertension, nicotine dependence, hyperlipidemia, morbid obesity who presented to the emergency department on 07/01/2021 complaining of a 3 day history of worsening shortness of breath. Patient noticed that shortness of breath became suddenly worse, she was not vaccinated for COVID-19, and her boyfriend had a upper respiratory infection last week. The EMS found her pulse ox to be around 80% on room air, she was placed on nonrebreather mask and her pulse ox improved up to 90%. She denied any chest pain, her cough is nonproductive, no fever, no chills, no nausea vomiting or diarrhea, she is usually not oxygen dependent at baseline. Admitted with acute hypoxic respiratory failure from COPD exacerbation. Severe hyponatremia. July 05: Sitting up in a chair. Eating better. Feeling better. Slight cough. Patient states that she been drinking excessive water for a long time she was told to drink lots of water. July 06: Up in a chair. Has been visiting. Sodium 125. Fluid restriction. Patient is bit disappointed about not able to go home. Did explain the importance of sodium coming up before she can go home. Increase activity as tolerated. Review of systems: Was done for constitutional, cardiovascular, GI, pulmonary. relevant finding as above Active Medications Albuterol/Ipratropium (Ipratropium-Albuterol 3 Ml Neb) 3 ml INHALATION RT-QID [facility] Last Admin: 07/06/21 15:31 Dose: 3 ml Documented by: Albuterol/Ipratropium (Ipratropium-Albuterol 3 Ml Neb) 3 ml INHALATION RT-Q2H PRN PRN Reason: Shortness Of Breath Or Wheezing Amlodipine Besylate (Amlodipine 10 Mg Tab) 10 mg PO DAILY@1200 [facility] Last Admin: 07/06/21 12:51 Dose: 10 mg Documented by: Atorvastatin Calcium (Atorvastatin 40 Mg Tab) 40 mg PO HS [facility] Last Admin: 07/05/21 21:04 Dose: 40 mg Documented by: Budesonide (Budesonide 1 Mg/2 Ml Nebu) 1 mg INHALATION RT-BID [facility] Last Admin: 07/06/21 07:59 Dose: 1 mg Documented by: Enoxaparin Sodium (Enoxaparin 40 Mg/0.4 Ml Syringe) 40 mg SQ DAILY [facility] Last Admin: 07/06/21 08:29 Dose: 40 mg Documented by: Formoterol Fumarate (Formoterol Fumarate 20 Mcg/2 Ml Nebu) 20 mcg INHALATION RT-BID [facility] Last Admin: 07/06/21 07:59 Dose: 20 mcg Documented by: Haloperidol Lactate (Haloperidol Lactate 5 Mg/Ml 1 Ml Vial) 2 mg IVP Q2H PRN PRN Reason: Agitation or Acute Psychosis Last Admin: 07/02/21 12:54 Dose: 2 mg Documented by: Insulin Aspart (Insulin Aspart (Novolog) 100 Unit/Ml Vial) 0 unit SQ ACHS [facility]; Protocol Last Admin: 07/06/21 12:51 Dose: Not Given Documented by: Methylprednisolone Sodium Succinate (Methylprednisolone Sod Succi 40 Mg/Ml 1 Ml Vial) 40 mg IV Q12H [facility] Last Admin: 07/06/21 08:29 Dose: 40 mg Documented by: Metoprolol Tartrate (Metoprolol Tartrate 50 Mg Tab) 100 mg PO BID [facility] Last Admin: 07/06/21 08:29 Dose: 100 mg Documented by: Naloxone HCl (Naloxone 0.4 Mg/Ml 1 Ml Vial) 0.2 mg IV Q2M PRN PRN Reason: Opioid Reversal Nicotine (Nicotine 14mg/24hr Patch) 1 patch TRANSDERM DAILY [facility] Last Admin: 07/06/21 08:36 Dose: Not Given Documented by: Pantoprazole Sodium (Pantoprazole 40 Mg Tablet) 40 mg PO AC-BRKFST [facility] Last Admin: 07/06/21 08:29 Dose: 40 mg Documented by: Psyllium Hydrophilic Mucilloid (Psyllium Husk 100% 6 Gm Packet) 6 gm PO DAILY [facility] Last Admin: 07/06/21 08:29 Dose: 6 gm Documented by: Sodium Bicarbonate (Sodium Bicarbonate Tab 650 Mg Tab) 650 mg PO TID [facility] Last Admin: 07/06/21 16:08 Dose: 650 mg Documented by: Sodium Chloride (Sodium Chloride Tab 1 Gm Tab) 1 gm PO BID [facility] Last Admin: 07/06/21 08:30 Dose: 1 gm Documented by: On examination: VITAL SIGNS: 97.7, 68, 20, 160 10/09/1996, 91% room air GENERAL APPEARANCE: Sitting up in a chair, awake, comfortable HEENT: Normal external appearance of nose and ear. Oral cavity normal EYES: Pupils equal. Conjunctiva normal. NECK: JVD not raised. Mass not palpable. RESPIRATORY: Respiratory effort normal. Decreased breath sounds. CARDIOVASCULAR: First and second sounds normal. No edema. ABDOMEN: Soft. Liver and spleen not palpable. No tenderness. No mass palpable. PSYCHIATRY: Alert and oriented x3. Mood and affect normal. INVESTIGATIONS, reviewed in the clinical context: July 06: Sodium 125 potassium 5.3 BUN 27 creatinine 0.39 White count 15 hemoglobin 14 platelets 389 sodium 129 potassium 4.7 BUN 20 creatinine 0.5 Chest x-ray: Cardiomegaly. 2-D echo: EF 50-55% CT chest: No consolidation. Assessment and plan: -Acute hypoxic respiratory failure from COPD exacerbation: Improving 91% on room air -Possible obesity hypoventilation syndrome -Acute COPD exacerbation in a smoker: Improving DuoNeb 4 times a day. Change Solu-Medrol to by mouth prednisone -Chronic nicotine dependence, cigarettes smoker Nicotine patch -Severe hyponatremia from excessive water intake/SIADH. Drink patient has been drinking excessive water all her life. free water intake to 1500 mL a day. receive hyper-tonic saline on presentation. Salt tablets Received 1 dose of Tolvaptan -Essential hypertension Lopressor 100 mg twice a day Norvasc 10 mg a day -Hyperlipidemia Lipitor 40 mg daily at bedtime -Morbid obesity BMI 44.2 Weight loss measures Fluid restriction. Salt tablets. DC Solu-Medrol. Oral prednisone. Discussed with the patient .Tolvaptan 1 dose today
[2021-07-06 17:24] LABS: Glucose,Whole Blood 110 mg/dL (75-99)
--- NOTE | 2021-07-06 18:52 | P.PN ---
Subjective Progress Note Date: 07/06/21 Principal diagnosis: Hypoxic respiratory failure secondary to acute exacerbation of COPD 60-year-old white female patient with past medical history of hypertension, nicotine dependence, hyperlipidemia, morbid obesity who presented to the emergency department on 07/01/2021 complaining of a 3 day history of worsening shortness of breath. Patient noticed that shortness of breath became suddenly worse, she was not vaccinated for COVID-19, and her boyfriend had a upper respiratory infection last week. The EMS found her pulse ox to be around 80% on room air, she was placed on nonrebreather mask and her pulse ox improved up to 90%. She denied any chest pain, her cough is nonproductive, no fever, no chills, no nausea vomiting or diarrhea, she is usually not oxygen dependent at baseline. Her chest x-ray shows no active cardiopulmonary disease, EKG showed sinus rhythm. Her labs revealed a sodium of 103, potassium of 3.3, chloride was 61, white count was 12.2, hemoglobin is 15.1, lactic acid was 0.8, proBNP was 1890, troponin was less than 0.012, COVID-19 PCR was negative. D-dimer was negative at 0.55, and INR was 0.9. CT chest without contrast showed no pulmonary consolidation, no suspicious pulmonary mass, and slight increased pulmonary interstitial density. She was given a dose of Lasix in the emergency department. She was started on nebulized treatments and IV steroids, acute exacerbation of COPD, and nephrology consultation was requested. On 07/03/2021 patient seen in follow-up in intensive care unit, she is a bit somnolent but easily arousable, appears to be no acute distress, did not require BiPAP support last night, she is on 2 L of oxygen the pulse ox of 94-95%, no fever or chills overnight, vital signs have been stable, she is currently not on any running IV fluids, she has been intermittently receiving hypertonic saline which is currently off, this morning serum sodium is 119. White blood cell count is 15.3, hemoglobin is 13.9, potassium is 4.0, chloride is 77, BUN 16, creatinine 0.39. Procalcitonin was negative at 0.07, TSH at 0.701. Lung sounds are positive for diffuse wheezes, patient is on IV steroids and nebulized bronchodilators. Yesterday patient had episode of increased confusion and agitation, and she was given although and a health and safety inspector was placed at the bedside. She has not required additional Haldol overnight. The patient is seen today 07/04/2021 in follow-up in the intensive care unit. She is much more awake and alert. She is up in a chair at the bedside. Denies any worsening shortness of breath, cough or congestion. She is maintaining O2 saturations in the 90s on 2 L/m per nasal cannula. No IV fluids. Her sodium is currently 124. White count 13.8. Hemoglobin 14.3. Potassium 3.5. Chloride 79. CO2 33. Creatinine 0.35. Blood cultures revealed no growth. The patient is seen today 07/05/2021 in follow-up on the regular medical floor. Currently sitting up in a chair at the bedside. Awake and alert in no acute distress. Maintaining good O2 saturations in the mid 90s on 2 L/m per nasal cannula. She's afebrile. White count 15.0. Hemoglobin 14.0. Sodium 129. Potassium 4.7. Creatinine 0.5. The patient is seen today 07/06/2021 in follow-up on the regular medical floor. She is currently sitting up in a chair at the bedside. Awake and alert in no acute distress. She is maintaining good O2 saturations in the 90s on room air. No IVs currently. Her sodium is 125. Continued on sodium tablets. She is continued on DuoNeb inhalations, Pulmicort and Perforomist inhalations, IV Solu- Medrol. Objective - Vital Signs Vital signs: Vital Signs Temp 97.7 F 07/06/21 12:40 Pulse 80 07/06/21 15:43 Resp 20 07/06/21 12:40 BP 163/97 07/06/21 12:40 Pulse Ox 91 L 07/06/21 12:40 Intake & Output 07/05/21 07/06/21 07/06/21 18:59 06:59 18:59 Intake Total 300 300 Balance 300 300 Weight 114.5 kg Intake: Oral 300 300 Other: Voiding Method Bedside Commode Toilet Bedside Commode # Voids 3 2 3 - Exam GENERAL EXAM: Alert, pleasant, 60-year-old female patient, on room air, comfortable in no apparent distress. HEAD: Normocephalic/atraumatic. EYES: Normal reaction of pupils, equal size. Conjunctiva pink, sclera white. NOSE: Clear with pink turbinates. THROAT: No erythema or exudates. NECK: No masses, no JVD, no thyroid enlargement, no adenopathy. CHEST: No chest wall deformity. Symmetrical expansion. LUNGS: Equal air entry with diminished breath sounds, mild wheezing CVS: Regular rate and rhythm, normal S1 and S2, no gallops, no murmurs, no rubs ABDOMEN: Soft, nontender. No hepatosplenomegaly, normal bowel sounds, no guarding or rigidity. EXTREMITIES: No clubbing, no edema, no cyanosis, 2+ pulses and upper and lower extremities. MUSCULOSKELETAL: Muscle strength and tone normal. SPINE: No scoliosis or deformity SKIN: No rashes CENTRAL NERVOUS SYSTEM: No focal deficits, tone is normal in all 4 extremities. PSYCHIATRIC: Alert and oriented -3. Appropriate affect. Intact judgment and insight. - Labs CBC & Chem 7: 07/05/21 07:07 07/06/21 06:47 Labs: Abnormal Lab Results - Last 24 Hours (Table) 07/06/21 07/06/21 07/06/21 Range/Units 06:47 07:52 12:41 Sodium 125 L (137-145) mmol/L Potassium 5.3 H (3.5-5.1) mmol/L Chloride 86 L (98-107) mmol/L Carbon Dioxide 31 H (22-30) mmol/L BUN 27 H (7-17) mg/dL Creatinine 0.39 L (0.52-1.04) mg/dL Glucose 121 H (74-99) mg/dL POC Glucose (mg/dL) 118 H 106 H (75-99) mg/dL 07/06/21 Range/Units 17:22 Sodium (137-145) mmol/L Potassium (3.5-5.1) mmol/L Chloride (98-107) mmol/L Carbon Dioxide (22-30) mmol/L BUN (7-17) mg/dL Creatinine (0.52-1.04) mg/dL Glucose (74-99) mg/dL POC Glucose (mg/dL) 110 H (75-99) mg/dL Microbiology - Last 24 Hours (Table) 07/01/21 15:15 Blood Culture - Preliminary Blood No Growth after 120 hours 07/01/21 15:10 Blood Culture - Preliminary Blood No Growth after 120 hours Assessment and Plan Assessment: 1 Acute hypoxic respiratory failure related to acute exacerbation of COPD. COVID-19 PCR was negative, chest x-ray showed no acute pulmonary process 2 Severe hyponatremia, likely hypovolemic related to poor intake and thiazide diuretic therapy, possible SIADH. Nephrology is following. Patient was on 3% hypertonic saline, today sodium is 129 3 Hypertension 4 Current and ongoing history of smoking 5 Suspect underlying COPD, severity of which is not known 6 Hypokalemia, related to dehydration and diuretic therapy, being replaced per protocol 7 Hypertension 8 Morbid obesity with BMI of 46 kg/m Plan: The patient was seen and evaluated by Dr. Anil Boland from the pulmonary and critical care standpoint Discontinue IV Solu-Medrol Initiate a prednisone taper Continue sodium tablets Probable home in the a.m. We'll continue to follow I, the cosigning physician, performed a history & physical examination of the p atient. Lungs sounds with faint wheeze, diminished. Maintaining good O2 saturations in the 90s on room air. I discussed the assessment and plan of care with my nurse practitioner, Charlene New. I attest to the above note as dictated by her.
[2021-07-06 20:23] LABS: Glucose,Whole Blood 106 mg/dL (75-99)
[2021-07-06] MEDS: ATORVASTATIN 40 MG TAB PO SCH (21:13)
[2021-07-07 04:24] VITALS: RESP 20; TEMP 98.3
[2021-07-07 07:25] LABS: African American GFR (CKD) >90 (>60 ml/min/1.73 sqM); Anion Gap 4 mmol/L; Blood Urea Nitrogen 21 mg/dL (7-17); Calcium 9.8 mg/dL (8.4-10.2); Carbon Dioxide 35 mmol/L (22-30); Chloride 92 mmol/L (98-107); Glucose 128 mg/dL (74-99); Non-African American GFR(CKD) >90 (>60 ml/min/1.73 sqM); Potassium 5.1 mmol/L (3.5-5.1); Sodium 131 mmol/L (137-145)
[2021-07-07] MEDS: BUDESONIDE 1 MG/2 ML NEBU INHALATION SCH (07:41)
[2021-07-07] MEDS: IPRATROPIUM-ALBUTEROL 3 ML NEB INHALATION SCH ×2 (07:41→11:25)
[2021-07-07] MEDS: FORMOTEROL FUMARATE 20 MCG/2 ML NEBU INHALATION SCH (07:41)
[2021-07-07] MEDS: NICOTINE 14MG/24HR PATCH TRANSDERM SCH (07:47)
[2021-07-07 07:55] LABS: Glucose,Whole Blood 116 mg/dL (75-99)
[2021-07-07] MEDS: INSULIN ASPART (NovoLOG) 100 UNIT/ML VIAL SQ SCH (08:07)
[2021-07-07] MEDS: PANTOPRAZOLE 40 MG TABLET PO SCH (08:14)
[2021-07-07] MEDS: METOPROLOL TARTRATE 50 MG TAB PO SCH (08:14)
[2021-07-07] MEDS: ENOXAPARIN 40 MG/0.4 ML SYRINGE SQ SCH (08:14)
[2021-07-07] MEDS: PSYLLIUM HUSK 100% 6 GM PACKET PO SCH (08:15)
[2021-07-07] MEDS: SODIUM CHLORIDE TAB 1 GM TAB PO SCH (08:15)
[2021-07-07] MEDS ORDERED: predniSONE 20 MG TAB PO SCH (09:00)
--- NOTE | 2021-07-07 10:39 | P.PN ---
Subjective Patient is seen in follow-up for hyponatremia. Sodium level gradually improving. 131 this morning. Oral intake is fair. Good urine output. No v omiting or diarrhea. Vital signs are stable. General: On nasal cannula. HEENT: Head exam is unremarkable. LUNGS: Breath sounds decreased. HEART: Rate and Rhythm are regular. ABDOMEN: Obese. EXTREMITITES: No edema. Objective - Vital Signs Vital signs: Vital Signs Temp 98.3 F 07/07/21 04:20 Pulse 80 07/07/21 08:08 Resp 20 07/07/21 04:20 BP 150/74 07/07/21 04:20 Pulse Ox 91 L 07/07/21 04:20 Intake & Output 07/06/21 07/07/21 07/07/21 18:59 06:59 18:59 Intake Total 590 Balance 590 Weight 113 kg Intake: Oral 590 Other: Voiding Method Toilet Toilet Bedside Commode Bedside Commode # Voids 3 2 - Labs CBC & Chem 7: 07/05/21 07:07 07/07/21 06:25 Labs: Abnormal Lab Results - Last 24 Hours (Table) 07/06/21 07/06/21 07/06/21 Range/Units 12:41 17:22 20:21 Sodium (137-145) mmol/L Chloride (98-107) mmol/L Carbon Dioxide (22-30) mmol/L BUN (7-17) mg/dL Creatinine (0.52-1.04) mg/dL Glucose (74-99) mg/dL POC Glucose (mg/dL) 106 H 110 H 106 H (75-99) mg/dL 07/07/21 07/07/21 Range/Units 06:25 07:53 Sodium 131 L (137-145) mmol/L Chloride 92 L (98-107) mmol/L Carbon Dioxide 35 H (22-30) mmol/L BUN 21 H (7-17) mg/dL Creatinine 0.49 L (0.52-1.04) mg/dL Glucose 128 H (74-99) mg/dL POC Glucose (mg/dL) 116 H (75-99) mg/dL Microbiology - Last 24 Hours (Table) 07/01/21 15:15 Blood Culture - Preliminary Blood No Growth after 120 hours 07/01/21 15:10 Blood Culture - Preliminary Blood No Growth after 120 hours Assessment and Plan Plan: Assessment: 1. Hyponatremia. Appears euvolemic. Component of poor intake and use of thiazide diuretic. Also concern for SIADH. Urine osmolality 471. Urine sodium 28. TSH normal. Sodium level 13 today.1 2. COPD exacerbation. 3. Benign hypertension Stable. 4. Hypokalemia from poor intake Place. Resolved. Plan: Currently off IV fluids. Continue to hold all diuretics. Avoid thiazide diuretics in the future. Maintain 40 ounce per day fluid restriction upon discharge. Encouraged oral intake, especially protein. Repeat BMP 2-3 days postdischarge. Follow up outpatient in 1 week. Maintain salt tabs.
[2021-07-07] MEDS ORDERED: LISINOPRIL-HCTZ 20-12.5 MG 1 EACH TAB PO STA (11:01)
[2021-07-07 11:35] VITALS: BP 159/83; PULSE 109
[2021-07-07] MEDS: amLODIPine 10 MG TAB PO SCH (11:35)
--- NOTE | 2021-07-07 18:01 | P.DS ---
Providers Date of admission: 07/01/21 18:02 Expected date of discharge: 07/07/21 Attending physician: Hayden Gutierrez Consults: 07/01/21 18:02 Consult Physician Stat Consulting Provider: Wilver Poole Consult Reason/Comments: hyponatremia, copd exacerbation, hypoxic respiratory failure Do you want consulting provider notified?: Already Contacted 07/01/21 20:01 Consult Physician Routine Consulting Provider: Devin Ding Consult Reason/Comments: chf Do you want consulting provider notified?: Yes 07/01/21 20:58 Consult Physician Routine Consulting Provider: Salo Prather Consult Reason/Comments: hyponatremia Do you want consulting provider notified?: Already Contacted Primary care physician: [facility] Course: Hospital course 60-year-old white female patient with past medical history of hypertension, nicotine dependence, hyperlipidemia, morbid obesity who presented to the emergency department on 07/01/2021 complaining of a 3 day history of worsening shortness of breath. Patient noticed that shortness of breath became suddenly worse, she was not vaccinated for COVID-19, and her boyfriend had a upper respiratory infection last week. The EMS found her pulse ox to be around 80% on room air, she was placed on nonrebreather mask and her pulse ox improved up to 90%. She denied any chest pain, her cough is nonproductive, no fever, no chills, no nausea vomiting or diarrhea, she is usually not oxygen dependent at baseline. Admitted with acute hypoxic respiratory failure from COPD exacerbation. Severe hyponatremia. July 05: Sitting up in a chair. Eating better. Feeling better. Slight cough. Patient states that she been drinking excessive water for a long time she was told to drink lots of water. July 06: Up in a chair. Has been visiting. Sodium 125. Fluid restriction. Patient is bit disappointed about not able to go home. Did explain the importance of sodium coming up before she can go home. Increase activity as tolerated. July 07: Doing better. ReceivedTolvaptan yesterday by nephrology. Sodium 132 today. Fluid restriction etc. discussed with the patient. Breathing much better. We will get Symbicort and albuterol ago. Smoking counseling done. Discussed with the . Discussion and discharge planning more than 35 minutes Consultation: Dr. Harrison from nephrology Dr. Ma from pulmonary Dr. Jared Campbell from cardiology On examination: VITAL SIGNS: 98.3, 76, 20, 150/74, 91% room air GENERAL APPEARANCE: Sitting up in a chair, awake, comfortable HEENT: Normal external appearance of nose and ear. Oral cavity normal EYES: Pupils equal. Conjunctiva normal. NECK: JVD not raised. Mass not palpable. RESPIRATORY: Respiratory effort normal. Decreased breath sounds. CARDIOVASCULAR: First and second sounds normal. No edema. ABDOMEN: Soft. Liver and spleen not palpable. No tenderness. No mass palpable. PSYCHIATRY: Alert and oriented x3. Mood and affect normal. INVESTIGATIONS, reviewed in the clinical context: July 07: Sodium 131 potassium 5.12 0.49 serum osmolality 286 July 06: Sodium 125 potassium 5.3 BUN 27 creatinine 0.39 White count 15 hemoglobin 14 platelets 389 sodium 129 potassium 4.7 BUN 20 creatinine 0.5 Chest x-ray: Cardiomegaly. 2-D echo: EF 50-55% CT chest: No consolidation. Assessment and plan: -Acute hypoxic respiratory failure from COPD exacerbation: Better 91% on room air -Possible obesity hypoventilation syndrome -Acute COPD exacerbation in a smoker: Improving DuoNeb 4 times a day. Change Solu-Medrol to by mouth prednisone Discharged home on Symbicort 80/4.5 one puff twice a day, short burst of prednisone over 4 days, albuterol when necessary. -Chronic nicotine dependence, cigarettes smoker Nicotine patch -Severe hyponatremia from excessive water intake/SIADH. Drink patient has been drinking excessive water all her life. free water intake to 1500 mL a day. receive hyper-tonic saline on presentation. Salt tablets Received 1 dose of Tolvaptan -Essential hypertension Lopressor 100 mg twice a day Norvasc 10 mg a day -Hyperlipidemia Lipitor 40 mg daily at bedtime -Morbid obesity BMI 44.2 Weight loss measures Disposition: Home Outpatient BMP in one week and follow-up with nephrology Plan - Discharge Summary Discharge Rx Participant: No New Discharge Prescriptions: New Albuterol Sulfate [Albuterol Sulfate Hfa] 1 puff PO Q4-6H #8.5 gm Psyllium Husk 100% [Metamucil Packet] 6 gm PO DAILY packet predniSONE 0 mg PO DIRECTED #10 tab Nicotine 14Mg/24Hr Patch [Habitrol] 1 patch TRANSDERM DAILY #14 patch Budesonide/Formoterol Fumarate [Symbicort 80-4.5 Mcg Inhaler] 1 puff INHALATION BID #1 each Continue amLODIPine [Norvasc] 10 mg PO DAILY Atorvastatin [Lipitor] 40 mg PO HS Metoprolol Tartrate [Lopressor] 100 mg PO BID Lisinopril-Hctz 20-12.5 mg [Zestoretic 20-12.5] 1 tab PO DAILY Discharge Medication List Atorvastatin [Lipitor] 40 mg PO HS 07/01/21 [History] Lisinopril-Hctz 20-12.5 mg [Zestoretic 20-12.5] 1 tab PO DAILY 07/01/21 [History] Metoprolol Tartrate [Lopressor] 100 mg PO BID 07/01/21 [History] amLODIPine [Norvasc] 10 mg PO DAILY 07/01/21 [History] Albuterol Sulfate [Albuterol Sulfate Hfa] 1 puff PO Q4-6H #8.5 gm 07/07/21 [Rx] Budesonide/Formoterol Fumarate [Symbicort 80-4.5 Mcg Inhaler] 1 puff INHALATION BID #1 each 07/07/21 [Rx] Nicotine 14Mg/24Hr Patch [Habitrol] 1 patch TRANSDERM DAILY #14 patch 07/07/21 [Rx] Psyllium Husk 100% [Metamucil Packet] 6 gm PO DAILY packet 07/07/21 [Rx] predniSONE 0 mg PO DIRECTED #10 tab 07/07/21 [Rx] Follow up Appointment(s)/Referral(s): Hayden Gutierrez MD [Primary Care Provider] - 1-2 days [facility], [NON-STAFF] - 1-2 Days Patient Instructions/Handouts: How to Stop Smoking (DC) Activity/Diet/Wound Care/Special Instructions: fluid restrict 1500 cc/day Discharge/Stand Alone Forms: Personal [employer] Discharge Disposition: HOME SELF-CARE
--- NOTE | 2021-07-13 22:59 | PN ---
PROGRESS NOTE ADDENDUM: Metabolic encephalopathy. MMODL / IJN: [id number] /
== END 2021-07-07 14:00 | disposition home or self-care (01) | DRG 190 ==
LOC: EC 13:26 → 2SICU 18:02 → 5NMEDONC 07-04 12:16
PROVIDERS: ADMIT Family Medicine; ATTEND Family Medicine
DX: J44.1 Chronic obstructive pulmonary disease with (acute) exacerbation (principal); J96.01 Acute respiratory failure with hypoxia; G93.41 Metabolic encephalopathy; E22.2 Syndrome of inappropriate secretion of antidiuretic hormone; Z68.42 Body mass index [BMI] 45.0-49.9, adult; E66.01 Morbid (severe) obesity due to excess calories; E78.5 Hyperlipidemia, unspecified; E86.0 Dehydration; E86.1 Hypovolemia; E87.6 Hypokalemia; E87.8 Other disorders of electrolyte and fluid balance, not elsewhere classified; F17.210 Nicotine dependence, cigarettes, uncomplicated; Z20.822 Contact with and (suspected) exposure to COVID-19; Z79.899 Other long term (current) drug therapy; Z78.1 Physical restraint status; R79.89 Other specified abnormal findings of blood chemistry; N28.9 Disorder of kidney and ureter, unspecified; I10 Essential (primary) hypertension
CPT/HCPCS: 36415; 71045; 71250; 80048; 80053; 81001; 82570; 83036; 83605; 83735; 83880; 83930; 83935; 84132; 84145; 84295; 84300; 84443; 84484; 84550; 85025; 85379; 85610; 85730; 87040; 87635; 93005; 93306; 94640; 94660; 96365; 96375; 99291